=== PATIENT | male | born 1970 | race Two or more races ===

== ENCOUNTER 2018-04-11 09:19 | Observation (INO) | payer BC ==
[~2018-04-11] VITALS: Ht 172.7 cm; Wt 82.3 kg
[2018-04-11 09:45] LABS: BASO # 0.1 x10^3/uL (0.0-0.2); BASO % 1 % (0-3); EOS # 0.4 x10^3/uL (0.0-0.7); EOS % 6 % (0-3); HEMATOCRIT 45.1 % (39.0-53.0); HEMOGLOBIN 15.2 g/dL (13.0-17.5); LYMPH # 1.8 x10^3/uL (1.0-4.8); LYMPH % 26 % (24-48); MEAN CORPUSCULAR HEMOGLOBIN 28 pg (25-35); MEAN CORPUSCULAR HGB CONC 34 g/dL (31-37); MEAN CORPUSCULAR VOLUME 84 fL (79-100); MONO # 0.6 x10^3/uL (0.0-1.1); MONO % 8 % (0-9); NEUT % 59 % (31-73); PLATELET COUNT 234 x10^3/uL (140-400); RED BLOOD COUNT 5.36 x10^6/uL (4.30-5.70); RED CELL DISTRIBUTION WIDTH 13.6 % (11.5-14.5); WHITE BLOOD COUNT 6.8 x10^3/uL (4.0-11.0)
[2018-04-11 09:54] LABS: PROTHROMBIN TIME PATIENT 12.6 SEC (11.7-14.0)
[2018-04-11 10:00] LABS: CALCIUM 9.7 mg/dL (8.5-10.1); CREATININE 1.3 mg/dL (0.7-1.3); GFR 59.2; POTASSIUM 4.3 mmol/L (3.5-5.1)
[2018-04-11] MEDS ORDERED: cloNIDine HCL 0.1 MG TABLET PO ONE (10:00)
--- NOTE | 2018-04-11 10:01 | RAD ---
Indication:SYNCOPE, HTN TECHNIQUE:Portable AP chest X-ray COMPARISON:None FINDINGS: Heart is normal in size. Prominent bilateral reticular opacities are seen. No pneumothorax or pleural effusion. No focal consolidation. Visualized bony thorax is within normal limits. Mediastinum is not widened. IMPRESSION: Findings suggests atypical/viral infection in right clinical context. Otherwise, no acute pulmonary process. Electronically signed by: Diomedes Ornelas DO (04/11/2018 9:58 AM) [id number]
[2018-04-11 10:07] LABS: ALBUMIN 4.5 g/dL (3.4-5.0); MAGNESIUM 2.1 mg/dL (1.8-2.4); TOTAL BILIRUBIN 0.6 mg/dL (0.2-1.0); TOTAL PROTEIN 9.1 g/dL (6.4-8.2)
--- NOTE | 2018-04-11 10:11 | PHYS DOC ---
Past Medical History Past Medical History: High Cholesterol, Hypertension Past Surgical History: No Surgical History Alcohol Use: Rarely Drug Use: None Adult General Chief Complaint Chief Complaint: DIZZY/LIGHT HEADED HPI HPI Patient is a 47 year old male who was brought here by EMS for evaluation of dizziness. Patient has history of HTN, on Losartan and clonidine IN AM. He woke up this morning, was getting ready for work. He just got off a conference call. He was not sure if he took his blood pressure medications already. He took only losartan then afterward, he was standing in the kitchen when he suddenly felt weak and dizzy. He was nauseous, sweaty, felt like he was going to pass out, no chest pain, no shortness of air, no headache, no abdominal pain. EMS was called, found that his blood pressure was very high, brought him here for evaluation. Patient said he has been doing fine lately, no recent travel or operation. Review of Systems Review of Systems Constitutional: Denies fever or chills , POSITIVE FOR DIZZINESS, WEAKNESS, SWEATING. Eyes: Denies change in visual acuity, redness, or eye pain [] HENT: Denies nasal congestion or sore throat [] Respiratory: Denies cough or shortness of breath [] Cardiovascular: NO CHEST PAIN, NO SHORTNESS OF AIR. GI: Denies abdominal pain, nausea, vomiting, bloody stools or diarrhea [] : Denies dysuria or hematuria [] Musculoskeletal: Denies back pain or joint pain [] Integument: Denies rash or skin lesions [] Neurologic: Denies headache, focal weakness or sensory changes. Positive for dizziness. Endocrine: Denies polyuria or polydipsia [] All other systems were reviewed and found to be within normal limits, except as documented in this note. Current Medications Current Medications Current Medications Medications (Trade) Dose Ordered Sig/Kelley Start Time Stop Time Status Last Admin Dose Admin Clonidine HCl (Catapres) 0.2 mg 1X ONCE 04/11/18 10:00 04/11/18 10:01 DC 04/11/18 10:08 0.2 MG Furosemide (Lasix) 40 mg 1X ONCE 04/11/18 11:45 04/11/18 11:46 UNV Allergies Allergies Allergies Coded Allergies Type Severity Reaction Last Updated Verified No Known Drug Allergies 04/11/18 No Physical Exam Physical Exam Constitutional: Well developed, well nourished, no acute distress, non-toxic appearance. [] HENT: Normocephalic, atraumatic, bilateral external ears normal, oropharynx moist, no oral exudates, nose normal. [] Eyes: PERRLA, EOMI, conjunctiva normal, no discharge. [] Neck: Normal range of motion, no tenderness, supple, no stridor. [] Cardiovascular:Heart rate regular rhythm, no murmur [] Lungs & Thorax: Bilateral breath sounds clear to auscultation [] Abdomen: Bowel sounds normal, soft, no tenderness, no masses, no pulsatile masses. [] Skin: Warm, dry, no erythema, no rash. [] Back: No tenderness, no CVA tenderness. [] Extremities: No tenderness, no cyanosis, no clubbing, ROM intact, no edema. [] Neurologic: Alert and oriented X 3, normal motor function, normal sensory function, no focal deficits noted. [] Psychologic: Affect normal, judgement normal, mood normal. [] Current Patient Data Vital Signs Vital Signs Date Time Temp Pulse Resp B/P (MAP) Pulse Ox O2 Delivery O2 Flow Rate FiO2 04/11/18 11:05 90 18 98 04/11/18 10:08 205/126 04/11/18 09:19 98.1 Room Air 98.1 Lab Values Laboratory Tests Test 04/11/18 09:31 04/11/18 09:35 Glucose (Fingerstick) 120 mg/dL (70-99) H White Blood Count 6.8 x10^3/uL (4.0-11.0) Red Blood Count 5.36 x10^6/uL (4.30-5.70) Hemoglobin 15.2 g/dL (13.0-17.5) Hematocrit 45.1 % (39.0-53.0) Mean Corpuscular Volume 84 fL (79-100) Mean Corpuscular Hemoglobin 28 pg (25-35) Mean Corpuscular Hemoglobin Concent 34 g/dL (31-37) Red Cell Distribution Width 13.6 % (11.5-14.5) Platelet Count 234 x10^3/uL (140-400) Neutrophils (%) (Auto) 59 % (31-73) Lymphocytes (%) (Auto) 26 % (24-48) Monocytes (%) (Auto) 8 % (0-9) Eosinophils (%) (Auto) 6 % (0-3) H Basophils (%) (Auto) 1 % (0-3) Neutrophils # (Auto) 4.0 x10^3uL (1.8-7.7) Lymphocytes # (Auto) 1.8 x10^3/uL (1.0-4.8) Monocytes # (Auto) 0.6 x10^3/uL (0.0-1.1) Eosinophils # (Auto) 0.4 x10^3/uL (0.0-0.7) Basophils # (Auto) 0.1 x10^3/uL (0.0-0.2) Prothrombin Time 12.6 SEC (11.7-14.0) Prothrombin Time INR 1.0 (0.8-1.1) PTT 30 SEC (24-38) Sodium Level 142 mmol/L (136-145) Potassium Level 4.3 mmol/L (3.5-5.1) Chloride Level 103 mmol/L (98-107) Carbon Dioxide Level 29 mmol/L (21-32) Anion Gap 10 (6-14) Blood Urea Nitrogen 18 mg/dL (8-26) Creatinine 1.3 mg/dL (0.7-1.3) Estimated GFR (Cockcroft-Gault) 59.2 BUN/Creatinine Ratio 14 (6-20) Glucose Level 113 mg/dL (70-99) H Calcium Level 9.7 mg/dL (8.5-10.1) Magnesium Level 2.1 mg/dL (1.8-2.4) Total Bilirubin 0.6 mg/dL (0.2-1.0) Aspartate Amino Transferase (AST) 17 U/L (15-37) Alanine Aminotransferase (ALT) 30 U/L (16-63) Alkaline Phosphatase 81 U/L (46-116) Creatine Kinase 134 U/L (39-308) Creatine Kinase MB (Mass) 0.6 ng/mL (0.0-3.6) Creatine Kinase MB Relative Index 0.4 % (0-4) Troponin I Quantitative < 0.017 ng/mL (0.000-0.055) FV-Fwu-I-Type Natriuretic Peptide 17 pg/mL (0-124) Total Protein 9.1 g/dL (6.4-8.2) H Albumin 4.5 g/dL (3.4-5.0) Albumin/Globulin Ratio 1.0 (1.0-1.7) Laboratory Tests 04/11/18 09:35 Laboratory Tests 04/11/18 09:35 EKG EKG EKG was read by this physician at 0923, rate of 75 bpm, no STEMI, SINUS RHYTHM. Radiology/Procedures Radiology/Procedures [][place] [id number] IMAGING REPORT Signed PATIENT: CHERI WINSTON ACCOUNT: [id number] : 1970 LOCATION: ER AGE: 47 SEX: M EXAM STATUS: PRE ER ORD. PHYSICIAN: DELONTE HARVEY DO REASON: SYNCOPE PROCEDURE: CHEST AP ONLY Indication:SYNCOPE, HTN TECHNIQUE:Portable AP chest X-ray COMPARISON:None FINDINGS: Heart is normal in size. Prominent bilateral reticular opacities are seen. No pneumothorax or pleural effusion. No focal consolidation. Visualized bony thorax is within normal limits. Mediastinum is not widened. IMPRESSION: Findings suggests atypical/viral infection in right clinical context. Otherwise, no acute pulmonary process. Electronically signed by: Diomedes Ornelas DO (04/11/2018 9:58 AM) [id number] DICTATED and SIGNED BY: DIOMEDES ORNELAS DO DATE: 04/11/[address] [id number] IMAGING REPORT Signed PATIENT: CHERI WINSTON ACCOUNT: [id number] : 1970 LOCATION: ER AGE: 47 SEX: M EXAM STATUS: REG ER ORD. PHYSICIAN: DELONTE HARVEY DO REASON: dizziness, hypertensive PROCEDURE: CT HEAD WO CONTRAST PQRS Compliance statement: One or more of the following individualized dose reduction techniques were utilized for this examination: 1. Automated exposure control. 2. Adjustment of the mA and/or kV according to patient size. 3. Use of iterative reconstruction technique. Indication:DIZZINESS AND HTN NO PREV TECHNIQUE: CT head without IV contrast COMPARISON:None FINDINGS: No pathologic extra-axial or intra-axial fluid collection. The ventricles and basal cisterns are within normal limits. No acute intracranial bleed. 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 No focal loss of live-white differentiation. Orbits are within normal limits. No suspicious bony lesion. Visualized paranasal sinuses and mastoid air cells are clear. IMPRESSION: 1. No acute intracranial process. If concern for acute ischemic stroke is high, please consider MRI brain. 2. 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 Electronically signed by: Diomedes Ornelas DO (04/11/2018 10:40 AM) [id number] DICTATED and SIGNED BY: DIOMEDES ORNELAS DO DATE: 04/11/18 1038 Course & Med Decision Making Course & Med Decision Making Pertinent Labs and Imaging studies reviewed. (See chart for details) Patient was given .2 mg CLONIDINE PO, his blood pressure improved, would like to stay in the hospital for observation. Dragon Disclaimer Dragon Disclaimer This electronic medical record was generated, in whole or in part, using a voice recognition dictation system. Departure Departure Impression: Primary Impression: Hypertensive urgency Disposition: ADMITTED INPATIENT Admitting Physician: Kenneth Carlson Condition: IMPROVED Referrals: UNKNOWN PCP NAME (PCP) DELONTE HARVEY DO Apr 11, 2018 10:11
--- NOTE | 2018-04-11 10:43 | RAD ---
PQRS Compliance statement: One or more of the following individualized dose reduction techniques were utilized for this examination: 1. Automated exposure control. 2. Adjustment of the mA and/or kV according to patient size. 3. Use of iterative reconstruction technique. Indication:DIZZINESS AND HTN NO PREV TECHNIQUE: CT head without IV contrast COMPARISON:None FINDINGS: No pathologic extra-axial or intra-axial fluid collection. The ventricles and basal cisterns are within normal limits. No acute intracranial bleed. 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 No focal loss of live-white differentiation. Orbits are within normal limits. No suspicious bony lesion. Visualized paranasal sinuses and mastoid air cells are clear. IMPRESSION: 1. No acute intracranial process. If concern for acute ischemic stroke is high, please consider MRI brain. 2. 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 Electronically signed by: Diomedes Ornelas DO (04/11/2018 10:40 AM) [id number]
--- NOTE | 2018-04-11 10:58 | EKG ---
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
[2018-04-11 11:36] LABS: BILIRUBIN,URINE NEGATIVE (NEG); CLARITY,URINE CLOUDY; COLOR,URINE YELLOW; NITRITE,URINE NEGATIVE (NEG); PROTEIN,URINE 100 mg/dL (NEG-TRACE); UROBILINOGEN,URINE 0.2 mg/dL (0.2 mg/dL)
[2018-04-11 11:42] LABS: BACTERIA,URINE FEW /HPF (0-FEW)
[2018-04-11] MEDS ORDERED: FUROSEMIDE 40 MG/4 ML VIAL. IVP ONE (11:45)
--- NOTE | 2018-04-11 12:51 | SSS ---
ADMIT DATE: 04/11/2018 CHIEF COMPLAINT: Dizziness. HISTORY OF PRESENT ILLNESS: The patient is a pleasant 47-year-old male who is on 3 blood pressure meds, but back in February, he talked to his doctor in coming off one because he did not like urinating. Apparently, he was taking Lasix. Now showing up his pressures are in the 250-280 range. He came to the ER. We evaluated him. We gave him some p.r.n. IV antihypertensives. He is improving, but his pressure is still high. I plan to admit him, then we are going to get him out the same evening. If I get his pressure back down with some Lasix, I am going to put him back on his Lasix. PAST MEDICAL HISTORY: Hyperlipidemia, hypertension. ALLERGIES: None. FAMILY HISTORY: Hypertension. 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 He is . He does not drink, smoke or take drugs. MEDICATIONS: Reviewed. He is on clonidine and losartan, but he was on Lasix, but he has been off of it for the past couple of months. His was quite baffled with this. REVIEW OF SYSTEMS: GENERAL: No history of weight change, weakness or fevers. SKIN: No bruising, hair changes or rashes. EYES: No blurred, double or loss of vision. NOSE AND THROAT: No history of nosebleeds, hoarseness or sore throat. HEART: No history of palpitations, chest pain or shortness of breath on exertion. LUNGS: Denies cough, hemoptysis, wheezing or shortness of breath. GASTROINTESTINAL: Denies changes in appetite, nausea, vomiting, diarrhea or constipation. GENITOURINARY: No history of frequency, urgency, hesitancy or nocturia. NEUROLOGIC: Denies history of numbness, tingling, tremor or weakness. PSYCHIATRIC: No history of panic, anxiety or depression. ENDOCRINE: No history of heat or cold intolerance, polyuria or polydipsia. EXTREMITIES: Denies muscle weakness, joint pain, pain on walking or stiffness. PHYSICAL EXAMINATION: VITAL SIGNS: Temperature afebrile, pulse 98, respirations 18, blood pressure is down to 205/126, we have had a low earlier down into the 150s. HEART: Normal S1, S2. LUNGS: Clear. ABDOMEN: Soft. EXTREMITIES: No edema. SKIN: No rash. ENDOCRINE: No thyromegaly. LYMPHATICS: No cervical nodes. HEMATOPOIETIC: No bruising. PSYCHIATRIC: He is stable. LABORATORY DATA: Hematology is normal. Electrolytes are normal. Troponin is 0. ASSESSMENT AND PLAN: Hypertensive emergency. I think I can get this pressure down and get him home this evening. For now, we are going to give him 40 of IV Lasix and then, I give him a script for 40 p.o. Lasix to take daily. I am going to resume his home meds, recheck him on this over the next few hours, hope to get him home this evening. DISPOSITION: Home. ACTIVITY: As tolerated. DIET: Low sodium. MEDICATIONS: Please see the MRAD. TOTAL TIME: 32 minutes. CHRISTINA REILLY DO DR: CHARAN/zully JOB#: [id number] / [id number]
[2018-04-11 12:55] VITALS: BP 135/90
--- NOTE | 2018-04-11 13:30 | PDOC2 ---
PHIL CASTRO METER READER CHIEF 04/11/18 1330: CARDIAC CONSULT DATE OF CONSULT Date of Consult DATE: 04/11/18 TIME: 13:26 REASON FOR CONSULT Reason for Consult: Hypertension REFERRING PHYSICIAN Referring Physician: Dr. Carlson SOURCE Source: Chart review, Patient HISTORY OF PRESENT ILLNESS HISTORY OF PRESENT ILLNESS This is a 47 yo male who presented secondary to dizziness. Patient reports feeling well upon awakening this am. Went downstairs, began feeling significantly dizzy. Was diaphoretic. [place] like he could pass out so he laid on the floor and had family call EMS. Denies any associated chest pain, SOA, nausea /vomiting, or palpitations. When EMS arrives, BP was 250/120. Takes clonidine and losartan at home. Report he is compliant with these, although he cant specifically remember if he took his clonidine this am. Does have a history of hypothyroidism and has not taken replacement therapy in a couple of months as he ran out of medication. Symptoms resolved as blood pressure lowered in ED. PAST MEDICAL HISTORY Cardiovascular: HTN, Hyperlipidemia Pulmonary: No pertinent hx CENTRAL NERVOUS SYSTEM: Other (no pertinent hx) GI: No pertinent hx Heme/Onc: No pertinent hx Hepatobiliary: No pertinent hx Psych: No pertinent hx Musculoskeletal: Other (no pertinent hx) Rheumatologic: No pertinent hx Infectious disease: No pertinent hx ENT: No pertinent hx Renal/: No pertinent hx Endocrine: Hypothyroidism PAST SURGICAL HISTORY Past Surgical History: No pertinent history FAMILY HISTORY Family History: Hypertension SOCIAL HISTORY Smoke: No ALCOHOL: none Drugs: None Lives: with Family CURRENT MEDICATIONS CURRENT MEDICATIONS Current Medications Medications (Trade) Dose Ordered Sig/Kelley Route PRN Reason Start Time Stop Time Status Last Admin Dose Admin Clonidine HCl (Catapres) 0.2 mg 1X ONCE PO 04/11/18 10:00 04/11/18 10:01 DC 04/11/18 10:08 Furosemide (Lasix) 40 mg 1X ONCE IVP 04/11/18 11:45 04/11/18 11:46 DC 04/11/18 11:38 ALLERGIES ALLERGIES: Coded Allergies: No Known Drug Allergies (Unverified , 04/11/18) ROS Review of System 14 point ROS conducted with pertinent positives noted above in HPI. PHYSICAL EXAM General: Alert, Oriented X3, Cooperative, No acute distress HEENT: Atraumatic, Mucous membr. moist/pink Lungs: Clear to auscultation, Normal air movement Heart: Regular rate, Normal S1, Normal S2, No murmurs Abdomen: No tenderness Extremities: No edema, Normal pulses Skin: No breakdown, No significant lesion Neuro: Normal speech, Sensation intact Psych/Mental Status: Mental status NL, Mood NL MUSCULOSKELETAL: No deformity VITALS VITALS Vital Signs Date Time Temp Pulse Resp B/P (MAP) Pulse Ox O2 Delivery O2 Flow Rate FiO2 04/11/18 12:33 88 18 98 04/11/18 10:08 205/126 04/11/18 09:19 98.1 Room Air 98.1 LABS Lab: Laboratory Tests Test 04/11/18 09:31 04/11/18 09:35 04/11/18 11:25 Glucose (Fingerstick) 120 mg/dL (70-99) White Blood Count 6.8 x10^3/uL (4.0-11.0) Red Blood Count 5.36 x10^6/uL (4.30-5.70) Hemoglobin 15.2 g/dL (13.0-17.5) Hematocrit 45.1 % (39.0-53.0) Mean Corpuscular Volume 84 fL (79-100) Mean Corpuscular Hemoglobin 28 pg (25-35) Mean Corpuscular Hemoglobin Concent 34 g/dL (31-37) Red Cell Distribution Width 13.6 % (11.5-14.5) Platelet Count 234 x10^3/uL (140-400) Neutrophils (%) (Auto) 59 % (31-73) Lymphocytes (%) (Auto) 26 % (24-48) Monocytes (%) (Auto) 8 % (0-9) Eosinophils (%) (Auto) 6 % (0-3) Basophils (%) (Auto) 1 % (0-3) Neutrophils # (Auto) 4.0 x10^3uL (1.8-7.7) Lymphocytes # (Auto) 1.8 x10^3/uL (1.0-4.8) Monocytes # (Auto) 0.6 x10^3/uL (0.0-1.1) Eosinophils # (Auto) 0.4 x10^3/uL (0.0-0.7) Basophils # (Auto) 0.1 x10^3/uL (0.0-0.2) Prothrombin Time 12.6 SEC (11.7-14.0) Prothromb Time International Ratio 1.0 (0.8-1.1) Activated Partial Thromboplast Time 30 SEC (24-38) Sodium Level 142 mmol/L (136-145) Potassium Level 4.3 mmol/L (3.5-5.1) Chloride Level 103 mmol/L (98-107) Carbon Dioxide Level 29 mmol/L (21-32) Anion Gap 10 (6-14) Blood Urea Nitrogen 18 mg/dL (8-26) Creatinine 1.3 mg/dL (0.7-1.3) Estimated GFR (Cockcroft-Gault) 59.2 BUN/Creatinine Ratio 14 (6-20) Glucose Level 113 mg/dL (70-99) Calcium Level 9.7 mg/dL (8.5-10.1) Magnesium Level 2.1 mg/dL (1.8-2.4) Total Bilirubin 0.6 mg/dL (0.2-1.0) Aspartate Amino Transf (AST/SGOT) 17 U/L (15-37) Alanine Aminotransferase (ALT/SGPT) 30 U/L (16-63) Alkaline Phosphatase 81 U/L (46-116) Creatine Kinase 134 U/L (39-308) Creatine Kinase MB (Mass) 0.6 ng/mL (0.0-3.6) Creatine Kinase MB Relative Index 0.4 % (0-4) Troponin I Quantitative < 0.017 ng/mL (0.000-0.055) GZ-Ase-W-Type Natriuretic Peptide 17 pg/mL (0-124) Total Protein 9.1 g/dL (6.4-8.2) Albumin 4.5 g/dL (3.4-5.0) Albumin/Globulin Ratio 1.0 (1.0-1.7) Urine Collection Type Unknown Urine Color Yellow Urine Clarity Cloudy Urine pH 6.0 Urine Specific Anthony 1.020 Urine Protein 100 mg/dL (NEG-TRACE) Urine Glucose (UA) Negative mg/dL (NEG) Urine Ketones (Stick) Negative mg/dL (NEG) Urine Blood Small (NEG) Urine Nitrite Negative (NEG) Urine Bilirubin Negative (NEG) Urine Urobilinogen Dipstick 0.2 mg/dL (0.2 mg/dL) Urine Leukocyte Esterase Trace (NEG) Urine RBC 3-5 /HPF (0-2) Urine WBC 5-10 /HPF (0-4) Urine Bacteria Few /HPF (0-FEW) ASSESSMENT/PLAN ASSESSMENT/PLAN 1. Malignant hypertension; better controlled. 2. Dizziness; secondary to above. 3. Hyperlipidemia 4. Hypothyroidism; not compliant with therapy Recommendations Check TSH, lipids Echo to assess LV function, presence of significant valvular anomalies Resume Losartan. Clonidine not ideal Add Norvasc. Consider Coreg if BP remains elevated Hydralazine IV PRN JJ FAIRBANKS MD 04/11/18 1656: CARDIAC CONSULT ASSESSMENT/PLAN ASSESSMENT/PLAN Patient seen and examined. Agree with DUPLICATING MACHINE MECHANIC's assessment and plan. Blood pressure better controlled since admission. Agree with starting Norvasc optimizing therapy. 2-D echo showed normal LV function without any wall motion abnormalities. Check renal arterial duplex scan to rule out renovascular hypertension Thank you for your consultation PHIL CASTRO APRN Apr 11, 2018 13:30 JJ FAIRBANKS MD Apr 11, 2018 16:56
[2018-04-11] MEDS ORDERED: GEMF600T8 PO (13:37)
[2018-04-11] MEDS ORDERED: CLON0.1T PO (13:37)
[2018-04-11] MEDS ORDERED: LOSA100T14 PO (13:37)
[2018-04-11 14:07] LABS: CHOLESTEROL/HDL RATIO 5.8
--- NOTE | 2018-04-11 14:56 | CARD ---
MR#: [id number] Date of Study: 04/11/2018 Ordering Physician: PHIL CASTRO, Referring Physician: CHRISTINA REILLY Tech: Kami Dalton RDCS APPROVED REPORT EXAM: Two-dimensional and M-mode echocardiogram with Doppler and color Doppler. Other Information Quality : Good INDICATION Hypertension/HCVD 2D DIMENSIONS RVDd3.0 (2.9-3.5cm)Left Atrium(2D)2.8 (1.6-4.0cm) IVSd1.4 (0.7-1.1cm)Aortic Root(2D)2.8 (2.0-3.7cm) LVDd3.7 (3.9-5.9cm)LVOT Diameter2.0 (1.8-2.4cm) PWd1.1 (0.7-1.1cm)LVDs1.9 (2.5-4.0cm) FS (%) 30.0 %SV48.2 ml LVEF(%)60.0 (>50%) Aortic Valve AoV Peak Rivas.117.3cm/sAoV VTI17.3cm AO Peak GR.5.5mmHgLVOT Peak Rivas.96.2cm/s LVOT VTI 15.22cmAO Mean GR.3mmHg LAYA (VMAX)2.63dl5HLF (VTI)2.78cm2 AI P 1/2 Qjow112rr Mitral Valve MV E Jtfqwtsf63.4cm/sMV DECEL [id number] MV A Upbgcrjm90.5cm/sMV ISR37ri E/A Ratio0.8MVA (PHT)3.09cm2 TDI E/Lateral E'5.6E/Medial E'11.0 Pulmonary Vein S1 Imzowctv25.5cm/sD2 Csoiuiky59.6cm/s LEFT VENTRICLE The left ventricle is normal size. There is mild concentric left ventricular hypertrophy. The left ve ntricular systolic function is normal and the ejection fraction is within normal range. The Ejection Fraction is 55-60%. There is normal LV segmental wall motion. Transmitral Doppler flow pattern is Gra de I-abnormal relaxation pattern. RIGHT VENTRICLE The right ventricle is normal size. The right ventricular systolic function is normal. ATRIA The left atrium size is normal. The right atrium size is normal. The interatrial septum is intact wit h no evidence for an atrial septal defect or patent foramen ovale as noted on 2-D or Doppler imaging. AORTIC VALVE The aortic valve is normal in structure and function. Doppler and Color Flow revealed trace aortic re gurgitation. There is no significant aortic valvular stenosis. MITRAL VALVE The mitral valve is normal in structure and function. There is no evidence of mitral valve prolapse. There is no mitral valve stenosis. Doppler and Color-flow revealed trace mitral regurgitation. TRICUSPID VALVE The tricuspid valve is normal in structure and function. Doppler and Color Flow revealed no tricuspid valve regurgitation noted. There is no tricuspid valve stenosis. PULMONIC VALVE The pulmonary valve is normal in structure and function. Doppler and Color Flow revealed trace pulmon ic valvular regurgitation. There is no pulmonic valvular stenosis. GREAT VESSELS The aortic root is normal in size. The ascending aorta is normal in size. The IVC is normal in size a nd collapses >50% with inspiration. PERICARDIAL EFFUSION There is no evidence of significant pericardial effusion. Critical Notification Critical Value: No <Conclusion> The left ventricle is normal size. The left ventricular systolic function is normal and the ejection fraction is within normal range. The Ejection Fraction is 55-60%. There is mild concentric left ventricular hypertrophy. There is no significant aortic valvular stenosis. Doppler and Color Flow revealed trace aortic regurgitation. Doppler and Color-flow revealed trace mitral regurgitation. Doppler and Color Flow revealed no tricuspid valve regurgitation noted. Signed by : Seun Barnes MD Electronically Approved : 04/11/2018 14:55:34
[2018-04-11] MEDS: LOSARTAN POTASSIUM 50 MG TABLET. PO SCH (16:00)
[2018-04-11] MEDS: amLODIPine BESYLATE 10 MG TABLET PO SCH (16:25)
[2018-04-11] MEDS ORDERED: hydrALAZINE 20 MG/ML VIAL. IVP PRN (16:30)
[2018-04-11 16:50] VITALS: BP 195/114
[2018-04-11 17:33] VITALS: BP 162/108
[2018-04-11] MEDS: ACETAMINOPHEN 325 MG TABLET. PO PRN (17:33)
[2018-04-11 18:03] VITALS: BP 153/100
[2018-04-11 19:10] VITALS: BP 144/104
[2018-04-11 22:00] VITALS: BP 140/97
[2018-04-12 03:11] VITALS: BP 130/88
[2018-04-12 07:00] VITALS: BP 164/103
[2018-04-12] MEDS: ACETAMINOPHEN 325 MG TABLET. PO PRN (07:15)
[2018-04-12] MEDS: amLODIPine BESYLATE 10 MG TABLET PO SCH (07:19)
[2018-04-12] MEDS: LOSARTAN POTASSIUM 50 MG TABLET. PO SCH (07:19)
--- NOTE | 2018-04-12 07:39 | PDOC ---
PROGRESS NOTES Chief Complaint Chief Complaint Malignant hypertension; better controlled. Dizziness; secondary to above. Hyperlipidemia Hypothyroidism; not compliant with therapy History of Present Illness History of Present Illness 47 yo male who presented secondary to dizziness. Patient reports feeling well upon awakening this am. Went downstairs, began feeling significantly dizzy. Was diaphoretic. [place] like he could pass out so he laid on the floor and had family call EMS. Denies any associated chest pain, SOA, nausea/vomiting, or palpitations. When EMS arrives, BP was 250/120. Takes clonidine and losartan at home. Report he is compliant with these, although he cant specifically remember if he took his clonidine this am. Does have a history of hypothyroidism and has not taken replacement therapy in a couple of months as he ran out of medication. Symptoms resolved as blood pressure lowered in the first 24-36 hours Echo with mild concentric LVH, otherwise normal. Renal duplex - No significant renal artery stenosis bilaterally. Incidental bilateral simple renal cysts noted as described above. Still with diastolic > 100mmHg despite 4 meds. Came down with HCTZ. Thyroid needs replaced is nearly 10 on TSH. Vitals Vitals Vital Signs Date Time Temp Pulse Resp B/P (MAP) Pulse Ox O2 Delivery O2 Flow Rate FiO2 04/12/18 07:19 164/103 04/12/18 03:11 97.8 86 16 96 Room Air 97.8 Physical Exam General: Alert, Oriented X3, Cooperative, No acute distress Heart: Regular rate, Normal S1, Normal S2, No murmurs Abdomen: No tenderness Extremities: No edema, Normal pulses Skin: No breakdown, No significant lesion Labs LABS Laboratory Tests Test 04/11/18 09:31 04/11/18 09:35 04/11/18 11:25 04/11/18 17:10 Glucose (Fingerstick) 120 mg/dL (70-99) White Blood Count 6.8 x10^3/uL (4.0-11.0) Red Blood Count 5.36 x10^6/uL (4.30-5.70) Hemoglobin 15.2 g/dL (13.0-17.5) Hematocrit 45.1 % (39.0-53.0) Mean Corpuscular Volume 84 fL (79-100) Mean Corpuscular Hemoglobin 28 pg (25-35) Mean Corpuscular Hemoglobin Concent 34 g/dL (31-37) Red Cell Distribution Width 13.6 % (11.5-14.5) Platelet Count 234 x10^3/uL (140-400) Neutrophils (%) (Auto) 59 % (31-73) Lymphocytes (%) (Auto) 26 % (24-48) Monocytes (%) (Auto) 8 % (0-9) Eosinophils (%) (Auto) 6 % (0-3) Basophils (%) (Auto) 1 % (0-3) Neutrophils # (Auto) 4.0 x10^3uL (1.8-7.7) Lymphocytes # (Auto) 1.8 x10^3/uL (1.0-4.8) Monocytes # (Auto) 0.6 x10^3/uL (0.0-1.1) Eosinophils # (Auto) 0.4 x10^3/uL (0.0-0.7) Basophils # (Auto) 0.1 x10^3/uL (0.0-0.2) Prothrombin Time 12.6 SEC (11.7-14.0) Prothromb Time International Ratio 1.0 (0.8-1.1) Activated Partial Thromboplast Time 30 SEC (24-38) Sodium Level 142 mmol/L (136-145) Potassium Level 4.3 mmol/L (3.5-5.1) Chloride Level 103 mmol/L (98-107) Carbon Dioxide Level 29 mmol/L (21-32) Anion Gap 10 (6-14) Blood Urea Nitrogen 18 mg/dL (8-26) Creatinine 1.3 mg/dL (0.7-1.3) Estimated GFR (Cockcroft-Gault) 59.2 BUN/Creatinine Ratio 14 (6-20) Glucose Level 113 mg/dL (70-99) Calcium Level 9.7 mg/dL (8.5-10.1) Magnesium Level 2.1 mg/dL (1.8-2.4) Total Bilirubin 0.6 mg/dL (0.2-1.0) Aspartate Amino Transf (AST/SGOT) 17 U/L (15-37) Alanine Aminotransferase (ALT/SGPT) 30 U/L (16-63) Alkaline Phosphatase 81 U/L (46-116) Creatine Kinase 134 U/L (39-308) Creatine Kinase MB (Mass) 0.6 ng/mL (0.0-3.6) Creatine Kinase MB Relative Index 0.4 % (0-4) Troponin I Quantitative < 0.017 ng/mL (0.000-0.055) < 0.017 ng/mL (0.000-0.055) VY-Xwy-F-Type Natriuretic Peptide 17 pg/mL (0-124) Total Protein 9.1 g/dL (6.4-8.2) Albumin 4.5 g/dL (3.4-5.0) Albumin/Globulin Ratio 1.0 (1.0-1.7) Triglycerides Level 245 mg/dL (0-150) Cholesterol Level 261 mg/dL (0-200) LDL Cholesterol, Calculated 167 mg/dL (0-100) VLDL Cholesterol, Calculated 49 mg/dL (0-40) Non-HDL Cholesterol Calculated 216 mg/dL (0-129) HDL Cholesterol 45 mg/dL (40-60) Cholesterol/HDL Ratio 5.8 Thyroid Stimulating Hormone (TSH) 9.849 uIU/mL (0.358-3.74) Urine Collection Type Unknown Urine Color Yellow Urine Clarity Cloudy Urine pH 6.0 Urine Specific [place] 1.020 Urine Protein 100 mg/dL (NEG-TRACE) Urine Glucose (UA) Negative mg/dL (NEG) Urine Ketones (Stick) Negative mg/dL (NEG) Urine Blood Small (NEG) Urine Nitrite Negative (NEG) Urine Bilirubin Negative (NEG) Urine Urobilinogen Dipstick 0.2 mg/dL (0.2 mg/dL) Urine Leukocyte Esterase Trace (NEG) Urine RBC 3-5 /HPF (0-2) Urine WBC 5-10 /HPF (0-4) Urine Bacteria Few /HPF (0-FEW) Assessment and Plan Assessmemt and Plan Problems Medical Problems: (1) Hypertensive urgency Status: Acute Comment Review of Relevant I have reviewed the following items camille (where applicable) has been applied. Labs Laboratory Tests Test 04/11/18 09:31 04/11/18 09:35 04/11/18 11:25 04/11/18 17:10 Glucose (Fingerstick) 120 mg/dL (70-99) White Blood Count 6.8 x10^3/uL (4.0-11.0) Red Blood Count 5.36 x10^6/uL (4.30-5.70) Hemoglobin 15.2 g/dL (13.0-17.5) Hematocrit 45.1 % (39.0-53.0) Mean Corpuscular Volume 84 fL (79-100) Mean Corpuscular Hemoglobin 28 pg (25-35) Mean Corpuscular Hemoglobin Concent 34 g/dL (31-37) Red Cell Distribution Width 13.6 % (11.5-14.5) Platelet Count 234 x10^3/uL (140-400) Neutrophils (%) (Auto) 59 % (31-73) Lymphocytes (%) (Auto) 26 % (24-48) Monocytes (%) (Auto) 8 % (0-9) Eosinophils (%) (Auto) 6 % (0-3) Basophils (%) (Auto) 1 % (0-3) Neutrophils # (Auto) 4.0 x10^3uL (1.8-7.7) Lymphocytes # (Auto) 1.8 x10^3/uL (1.0-4.8) Monocytes # (Auto) 0.6 x10^3/uL (0.0-1.1) Eosinophils # (Auto) 0.4 x10^3/uL (0.0-0.7) Basophils # (Auto) 0.1 x10^3/uL (0.0-0.2) Prothrombin Time 12.6 SEC (11.7-14.0) Prothromb Time International Ratio 1.0 (0.8-1.1) Activated Partial Thromboplast Time 30 SEC (24-38) Sodium Level 142 mmol/L (136-145) Potassium Level 4.3 mmol/L (3.5-5.1) Chloride Level 103 mmol/L (98-107) Carbon Dioxide Level 29 mmol/L (21-32) Anion Gap 10 (6-14) Blood Urea Nitrogen 18 mg/dL (8-26) Creatinine 1.3 mg/dL (0.7-1.3) Estimated GFR (Cockcroft-Gault) 59.2 BUN/Creatinine Ratio 14 (6-20) Glucose Level 113 mg/dL (70-99) Calcium Level 9.7 mg/dL (8.5-10.1) Magnesium Level 2.1 mg/dL (1.8-2.4) Total Bilirubin 0.6 mg/dL (0.2-1.0) Aspartate Amino Transf (AST/SGOT) 17 U/L (15-37) Alanine Aminotransferase (ALT/SGPT) 30 U/L (16-63) Alkaline Phosphatase 81 U/L (46-116) Creatine Kinase 134 U/L (39-308) Creatine Kinase MB (Mass) 0.6 ng/mL (0.0-3.6) Creatine Kinase MB Relative Index 0.4 % (0-4) Troponin I Quantitative < 0.017 ng/mL (0.000-0.055) < 0.017 ng/mL (0.000-0.055) ED-Cod-R-Type Natriuretic Peptide 17 pg/mL (0-124) Total Protein 9.1 g/dL (6.4-8.2) Albumin 4.5 g/dL (3.4-5.0) Albumin/Globulin Ratio 1.0 (1.0-1.7) Triglycerides Level 245 mg/dL (0-150) Cholesterol Level 261 mg/dL (0-200) LDL Cholesterol, Calculated 167 mg/dL (0-100) VLDL Cholesterol, Calculated 49 mg/dL (0-40) Non-HDL Cholesterol Calculated 216 mg/dL (0-129) HDL Cholesterol 45 mg/dL (40-60) Cholesterol/HDL Ratio 5.8 Thyroid Stimulating Hormone (TSH) 9.849 uIU/mL (0.358-3.74) Urine Collection Type Unknown Urine Color Yellow Urine Clarity Cloudy Urine pH 6.0 Urine Specific [place] 1.020 Urine Protein 100 mg/dL (NEG-TRACE) Urine Glucose (UA) Negative mg/dL (NEG) Urine Ketones (Stick) Negative mg/dL (NEG) Urine Blood Small (NEG) Urine Nitrite Negative (NEG) Urine Bilirubin Negative (NEG) Urine Urobilinogen Dipstick 0.2 mg/dL (0.2 mg/dL) Urine Leukocyte Esterase Trace (NEG) Urine RBC 3-5 /HPF (0-2) Urine WBC 5-10 /HPF (0-4) Urine Bacteria Few /HPF (0-FEW) Laboratory Tests Test 04/11/18 09:31 04/11/18 09:35 04/11/18 11:25 04/11/18 17:10 Glucose (Fingerstick) 120 mg/dL (70-99) White Blood Count 6.8 x10^3/uL (4.0-11.0) Red Blood Count 5.36 x10^6/uL (4.30-5.70) Hemoglobin 15.2 g/dL (13.0-17.5) Hematocrit 45.1 % (39.0-53.0) Mean Corpuscular Volume 84 fL (79-100) Mean Corpuscular Hemoglobin 28 pg (25-35) Mean Corpuscular Hemoglobin Concent 34 g/dL (31-37) Red Cell Distribution Width 13.6 % (11.5-14.5) Platelet Count 234 x10^3/uL (140-400) Neutrophils (%) (Auto) 59 % (31-73) Lymphocytes (%) (Auto) 26 % (24-48) Monocytes (%) (Auto) 8 % (0-9) Eosinophils (%) (Auto) 6 % (0-3) Basophils (%) (Auto) 1 % (0-3) Neutrophils # (Auto) 4.0 x10^3uL (1.8-7.7) Lymphocytes # (Auto) 1.8 x10^3/uL (1.0-4.8) Monocytes # (Auto) 0.6 x10^3/uL (0.0-1.1) Eosinophils # (Auto) 0.4 x10^3/uL (0.0-0.7) Basophils # (Auto) 0.1 x10^3/uL (0.0-0.2) Prothrombin Time 12.6 SEC (11.7-14.0) Prothromb Time International Ratio 1.0 (0.8-1.1) Activated Partial Thromboplast Time 30 SEC (24-38) Sodium Level 142 mmol/L (136-145) Potassium Level 4.3 mmol/L (3.5-5.1) Chloride Level 103 mmol/L (98-107) Carbon Dioxide Level 29 mmol/L (21-32) Anion Gap 10 (6-14) Blood Urea Nitrogen 18 mg/dL (8-26) Creatinine 1.3 mg/dL (0.7-1.3) Estimated GFR (Cockcroft-Gault) 59.2 BUN/Creatinine Ratio 14 (6-20) Glucose Level 113 mg/dL (70-99) Calcium Level 9.7 mg/dL (8.5-10.1) Magnesium Level 2.1 mg/dL (1.8-2.4) Total Bilirubin 0.6 mg/dL (0.2-1.0) Aspartate Amino Transf (AST/SGOT) 17 U/L (15-37) Alanine Aminotransferase (ALT/SGPT) 30 U/L (16-63) Alkaline Phosphatase 81 U/L (46-116) Creatine Kinase 134 U/L (39-308) Creatine Kinase MB (Mass) 0.6 ng/mL (0.0-3.6) Creatine Kinase MB Relative Index 0.4 % (0-4) Troponin I Quantitative < 0.017 ng/mL (0.000-0.055) < 0.017 ng/mL (0.000-0.055) DW-Qwj-T-Type Natriuretic Peptide 17 pg/mL (0-124) Total Protein 9.1 g/dL (6.4-8.2) Albumin 4.5 g/dL (3.4-5.0) Albumin/Globulin Ratio 1.0 (1.0-1.7) Triglycerides Level 245 mg/dL (0-150) Cholesterol Level 261 mg/dL (0-200) LDL Cholesterol, Calculated 167 mg/dL (0-100) VLDL Cholesterol, Calculated 49 mg/dL (0-40) Non-HDL Cholesterol Calculated 216 mg/dL (0-129) HDL Cholesterol 45 mg/dL (40-60) Cholesterol/HDL Ratio 5.8 Thyroid Stimulating Hormone (TSH) 9.849 uIU/mL (0.358-3.74) Urine Collection Type Unknown Urine Color Yellow Urine Clarity Cloudy Urine pH 6.0 Urine Specific [place] 1.020 Urine Protein 100 mg/dL (NEG-TRACE) Urine Glucose (UA) Negative mg/dL (NEG) Urine Ketones (Stick) Negative mg/dL (NEG) Urine Blood Small (NEG) Urine Nitrite Negative (NEG) Urine Bilirubin Negative (NEG) Urine Urobilinogen Dipstick 0.2 mg/dL (0.2 mg/dL) Urine Leukocyte Esterase Trace (NEG) Urine RBC 3-5 /HPF (0-2) Urine WBC 5-10 /HPF (0-4) Urine Bacteria Few /HPF (0-FEW) Medications Current Medications Clonidine HCl (Catapres) 0.2 mg 1X ONCE PO Last administered on 04/11/18 10:08 ; Start 04/11/18 at 10:00; Stop 04/11/18 at 10:01; Status DC Furosemide (Lasix) 40 mg 1X ONCE IVP Last administered on 04/11/18at 11:38; Start 04/11/18 at 11:45; Stop 04/11/18 at 11:46; Status DC Amlodipine Besylate (Norvasc) 10 mg DAILY PO Last administered on 04/12/18at 07: 19; Start 04/11/18 at 16:00 Losartan Potassium (Cozaar) 100 mg DAILY PO Last administered on 04/12/18 07:19 ; Start 04/11/18 at 16:00 Hydralazine HCl (Apresoline Inj) 10 mg PRN Q4HRS PRN IVP ELEVATED BP, SEE COMMENTS Last administered on 04/11/18at 17:36; Start 04/11/18 at 16:30 Acetaminophen (Tylenol) 650 mg PRN Q6HRS PRN PO pain Last administered on at 07:15; Start 04/11/18 at 17:15 Active Scripts Active Reported Losartan Potassium 100 Mg Tablet 100 Mg PO DAILY Clonidine Hcl 0.1 Mg Tablet 0.1 Mg PO BID Gemfibrozil 600 Mg Tablet 600 Mg PO HS Vitals/I & O Vital Sign - Last 24 Hours 04/11/18 04/11/18 04/11/18 04/11/18 09:19 09:25 09:49 10:08 Temp 98.1 98.1 Pulse 76 78 76 80 Resp 18 18 18 B/P (MAP) 256/144 (181) 205/126 Pulse Ox 99 100 99 O2 Delivery Room Air 04/11/18 04/11/18 04/11/18 04/11/18 10:19 10:33 11:03 11:05 Pulse 74 84 80 90 Resp 18 18 18 18 Pulse Ox 97 98 96 98 04/11/18 04/11/18 04/11/18 04/11/18 11:33 12:03 12:33 12:55 Temp 98.3 98.3 Pulse 78 79 88 88 Resp 18 18 18 20 B/P (MAP) 135/90 (105) Pulse Ox 98 98 98 96 O2 Delivery Room Air 3/07/2504/11/18 04/11/18 04/11/18 15:00 16:00 16:25 16:50 Temp 97.2 97.2 Pulse 85 75 Resp 20 B/P (MAP) 195/114 (141) Pulse Ox 96 O2 Delivery Room Air Room Air Room Air 04/11/18 04/11/18 04/11/18 04/11/18 17:33 17:36 18:03 19:10 Temp 98.6 98.6 Pulse 94 92 Resp 16 B/P (MAP) 162/108 (126) 162/108 153/100 (117) 144/104 (117) Pulse Ox 97 O2 Delivery Room Air 04/11/18 04/11/18 04/12/18 04/12/18 20:00 22:00 03:11 07:19 Temp 98.4 97.8 98.4 97.8 Pulse 99 86 Resp 16 16 B/P (MAP) 140/97 (111) 130/88 (102) 164/103 Pulse Ox 95 96 O2 Delivery Room Air Room Air Room Air 04/12/18 07:19 B/P (MAP) 164/103 Intake and Output 04/11/18 04/11/18 04/12/18 14:59 22:59 06:59 Intake Total 0 ml 300 ml Output Total 675 ml 1050 ml Balance -675 ml -1050 ml 300 ml PEYMAN HINOJOSA MD Apr 12, 2018 07:39
[2018-04-12] MEDS ORDERED: hydroCHLOROthiazide 25 MG TABLET PO SCH (09:00)
[2018-04-12] MEDS ORDERED: cloNIDine HCL 0.1 MG TABLET PO PRN (09:00)
[2018-04-12] MEDS ORDERED: AMLO10TA8 PO (09:03)
[2018-04-12] MEDS ORDERED: AMLO-292 PO (09:03)
[2018-04-12] MEDS ORDERED: HYDR-2145 PO (09:03)
--- NOTE | 2018-04-12 09:42 | RAD ---
MR#: [id number] Date of Study: 04/11/2018 Ordering Physician: JJ FAIRBANKS, Referring Physician: CHRISTINA REILLY Tech: Serenity Vargas BS, RTR, RDMS, RVT APPROVED REPORT Patient Location: IN-PATIENT Indications Uncontrolled HTN Renal Artery Doppler Right Renal Artery Left Renal Arter y Proximal 146.0/65.0 cm/secProximal 95.0/52.0 cm/sec Mid 64.0/31.0 cm/secMid 143.0/67.0 cm/sec Distal 73.0/40.0 cm/secDistal 99.0/52.0 cm/sec Renal/Aorta Ratio 1.57Renal/Aorta Ratio 1.54 Prox. Resistive Index 0.56Prox. Resistive Index 0.45 Mid Resistive Index 0.51Mid Resistive Index 0.53 Distal Resistive Index 0.45Distal Resistive Index 0.53 Renal Measurements RightLeft Kidney Inbrmo97.9 cm cmKidney Kxaazl48.0 cm cm Right Additional FindingsLeft Additional Findings Findings Grayscale images of the bilateral kidneys reveal mild cortical disease with bilateral renal cysts on the right measuring 1.8 x 1.4 x 1.7 cm and on the left measuring 1.6 x 1.5 x 1.5 cm. The cysts appear to be simple cysts. Mild left superior kidney scarring the cortical level is noted. Spectral waveforms and color Doppler of the bilateral proximal mid and distal renal arteries does not reveal any significant velocity acceleration. Normal renal to aortic ratios noted. Resistive indices are below the normal limits but otherwise unremarkable. Critical Notification Critical Value: No <Conclusion> No significant renal artery stenosis bilaterally. Incidental bilateral simple renal cysts noted as described above. Signed by : Paul Gilbert, Electronically Approved : 04/12/2018 09:41:14
[2018-04-12 11:00] VITALS: BP 156/101
[2018-04-12 12:30] VITALS: BP 120/68
[2018-04-12] MEDS ORDERED: LABETALOL 20 MG/4 ML DISP.SYRIN. IVP PRN (12:30)
[2018-04-12] MEDS ORDERED: LEVO50TA5 PO (12:40)
[2018-04-12 14:47] VITALS: BP 156/94
--- NOTE | 2018-04-12 15:42 | NUR ---
Discharge Note: CHERI WINSTON [address] [place] [address] Discharge instructions and discharge home medications reviewed with Patient and a copy given. All questions have been answered and understanding verbalized. The following instructions and handouts were given: discharge instructions, new medication info, diet info, HTN info. Discontinued lines and drains: Peripheral IV intact. Patient discharged to Home or Self Care with Spouse via Wheelchair at 1530.
--- NOTE | 2018-04-12 15:53 | PDOC3 ---
Discharge Summary Visit Information Date of Admission: Apr 11, 2018 Date of Discharge: Apr 12, 2018 Admitting Diagnosis: HTN urgency Final Diagnosis Problems Medical Problems: (1) Hypertensive urgency Status: Acute Brief Hospital Course Allergies Allergies Coded Allergies Type Severity Reaction Last Updated Verified No Known Drug Allergies 04/11/18 No Vital Signs Vital Signs Date Time Temp Pulse Resp B/P (MAP) Pulse Ox O2 Delivery O2 Flow Rate FiO2 04/12/18 14:47 156/94 (114) 04/12/18 11:00 98.5 91 18 96 Room Air 98.5 Lab Results Laboratory Tests Test 04/11/18 09:31 04/11/18 09:35 04/11/18 11:25 04/11/18 17:10 Glucose (Fingerstick) 120 mg/dL (70-99) White Blood Count 6.8 x10^3/uL (4.0-11.0) Red Blood Count 5.36 x10^6/uL (4.30-5.70) Hemoglobin 15.2 g/dL (13.0-17.5) Hematocrit 45.1 % (39.0-53.0) Mean Corpuscular Volume 84 fL (79-100) Mean Corpuscular Hemoglobin 28 pg (25-35) Mean Corpuscular Hemoglobin Concent 34 g/dL (31-37) Red Cell Distribution Width 13.6 % (11.5-14.5) Platelet Count 234 x10^3/uL (140-400) Neutrophils (%) (Auto) 59 % (31-73) Lymphocytes (%) (Auto) 26 % (24-48) Monocytes (%) (Auto) 8 % (0-9) Eosinophils (%) (Auto) 6 % (0-3) Basophils (%) (Auto) 1 % (0-3) Neutrophils # (Auto) 4.0 x10^3uL (1.8-7.7) Lymphocytes # (Auto) 1.8 x10^3/uL (1.0-4.8) Monocytes # (Auto) 0.6 x10^3/uL (0.0-1.1) Eosinophils # (Auto) 0.4 x10^3/uL (0.0-0.7) Basophils # (Auto) 0.1 x10^3/uL (0.0-0.2) Prothrombin Time 12.6 SEC (11.7-14.0) Prothromb Time International Ratio 1.0 (0.8-1.1) Activated Partial Thromboplast Time 30 SEC (24-38) Sodium Level 142 mmol/L (136-145) Potassium Level 4.3 mmol/L (3.5-5.1) Chloride Level 103 mmol/L (98-107) Carbon Dioxide Level 29 mmol/L (21-32) Anion Gap 10 (6-14) Blood Urea Nitrogen 18 mg/dL (8-26) Creatinine 1.3 mg/dL (0.7-1.3) Estimated GFR (Cockcroft-Gault) 59.2 BUN/Creatinine Ratio 14 (6-20) Glucose Level 113 mg/dL (70-99) Calcium Level 9.7 mg/dL (8.5-10.1) Magnesium Level 2.1 mg/dL (1.8-2.4) Total Bilirubin 0.6 mg/dL (0.2-1.0) Aspartate Amino Transf (AST/SGOT) 17 U/L (15-37) Alanine Aminotransferase (ALT/SGPT) 30 U/L (16-63) Alkaline Phosphatase 81 U/L (46-116) Creatine Kinase 134 U/L (39-308) Creatine Kinase MB (Mass) 0.6 ng/mL (0.0-3.6) Creatine Kinase MB Relative Index 0.4 % (0-4) Troponin I Quantitative < 0.017 ng/mL (0.000-0.055) < 0.017 ng/mL (0.000-0.055) XW-Nmu-X-Type Natriuretic Peptide 17 pg/mL (0-124) Total Protein 9.1 g/dL (6.4-8.2) Albumin 4.5 g/dL (3.4-5.0) Albumin/Globulin Ratio 1.0 (1.0-1.7) Triglycerides Level 245 mg/dL (0-150) Cholesterol Level 261 mg/dL (0-200) LDL Cholesterol, Calculated 167 mg/dL (0-100) VLDL Cholesterol, Calculated 49 mg/dL (0-40) Non-HDL Cholesterol Calculated 216 mg/dL (0-129) HDL Cholesterol 45 mg/dL (40-60) Cholesterol/HDL Ratio 5.8 Thyroid Stimulating Hormone (TSH) 9.849 uIU/mL (0.358-3.74) Urine Collection Type Unknown Urine Color Yellow Urine Clarity Cloudy Urine pH 6.0 Urine Specific [place] 1.020 Urine Protein 100 mg/dL (NEG-TRACE) Urine Glucose (UA) Negative mg/dL (NEG) Urine Ketones (Stick) Negative mg/dL (NEG) Urine Blood Small (NEG) Urine Nitrite Negative (NEG) Urine Bilirubin Negative (NEG) Urine Urobilinogen Dipstick 0.2 mg/dL (0.2 mg/dL) Urine Leukocyte Esterase Trace (NEG) Urine RBC 3-5 /HPF (0-2) Urine WBC 5-10 /HPF (0-4) Urine Bacteria Few /HPF (0-FEW) Laboratory Tests Test 04/11/18 17:10 Troponin I Quantitative < 0.017 ng/mL (0.000-0.055) Brief Hospital Course Mr. Fregoso is a 47 yo male who presented secondary to dizziness. Patient reports feeling well upon awakening this am. Went downstairs, began feeling significantly dizzy. Was diaphoretic. [place] like he could pass out so he laid on the floor and had family call EMS. Denies any associated chest pain, SOA, nausea /vomiting, or palpitations. When EMS arrives, BP was 250/120. Takes clonidine and losartan at home. Report he is compliant with these, although he cant specifically remember if he took his clonidine this am. Does have a history of hypothyroidism and has not taken replacement therapy in a couple of months as he ran out of medication. Symptoms resolved as blood pressure lowered in the first 36 hours with addition of HCTZ, amlodipine and only prn clonidine. Seen in conjunction with cardiology after Echo showed LVH Echo with mild concentric LVH, otherwise normal. Renal duplex - No significant renal artery stenosis bilaterally. Incidental bilateral simple renal cysts noted as described above. Was still with diastolic > 100mmHg despite 4 meds until it came down with HCTZ Thyroid needs replaced is nearly 10 on TSH. He notes he actually was given levothyroxine previously. LDL notably 167, advised to cont fenofibrate, consider statin in the future if lifestyle cannot help alone. Greater than 30 minutes spent on d/c including d/w family and lifestyle modification. Discharge Information Condition at Discharge: Improved Follow Up: Weeks (2) Disposition/Orders: D/C to Home Scheduled Amlodipine Besylate (Amlodipine Besylate) 10 Mg Tablet, 10 MG PO DAILY for HTN for 30 Days, #30 To take while awaiting exforge-HCT approval Prescribed by: PEYMAN HINOJOSA MD on 04/12/18902 Amlodipine/Valsartan/Hcthiazid (Exforge Hct 10-320-25 Mg Tab) 1 Each Tablet, 1 TAB PO DAILY for HTN malignant for 90 Days, #90 Ref 3 Prescribed by: PEYMAN HINOJOSA MD on 04/12/18902 Clonidine Hcl (Clonidine Hcl) 0.1 Mg Tablet, 0.1 MG PO BID for hypertension, ( Reported) Entered as Reported by: RANDALL LOPEZ on 04/11/181336 Last Action: New Order on 04/11/181336 by RANDALL LOPEZ Gemfibrozil (Gemfibrozil) 600 Mg Tablet, 600 MG PO HS for cholesterol, (Reported ) Entered as Reported by: RANDALL LOPEZ on 04/11/181336 Last Action: New Order on 04/11/181336 by RANDALL LOPEZ Hydrochlorothiazide (Hydrochlorothiazide Tablet ) 25 Mg Tablet, 25 MG PO DAILY for HTN for 30 Days, #30 To take while awaiting exforge-HCT approval Prescribed by: PEYMAN HINOJOSA MD on 04/12/18902 Levothyroxine Sodium (Levothyroxine Sodium) 50 Mcg Tablet, 1 TAB PO DAILY for hypothyroidism for 30 Days, #30 Ref 2 Prescribed by: PEYMAN HINOJOSA MD on 04/12/18 1240 Losartan Potassium (Losartan Potassium) 100 Mg Tablet, 100 MG PO DAILY for HYPERTENSION, (Reported) Entered as Reported by: RANDALL LOPEZ on 04/11/181336 Last Action: Converted on 04/11/181531 by JONATHAN GARCIA CHRISTOPHER S MD Apr 12, 2018 15:53
== END 2018-04-12 15:37 | disposition home or self-care (01) ==
LOC: ER 09:19 → 2 SOUTH 11:27
PROVIDERS: ADMIT Internal Medicine; ATTEND Internal Medicine
DX: I16.1 Hypertensive emergency (principal); R42 Dizziness and giddiness; I10 Essential (primary) hypertension; R53.1 Weakness; R55 Syncope and collapse; Z82.49 Family history of ischemic heart disease and other diseases of the circulatory system; E03.9 Hypothyroidism, unspecified; N28.1 Cyst of kidney, acquired; E78.00 Pure hypercholesterolemia, unspecified
CPT/HCPCS: 36415; 70450; 71045; 76770; 80053; 80061; 81001; 82553; 82962; 83735; 83880; 84443; 84484; 85025; 85610; 85730; 87086; 93005; 93306; 96374; 96375; 99284; G0378; J0360; J1940; G0379

== ENCOUNTER 2021-04-09 16:33 | Inpatient (IN) | payer BC ==
[~2021-04-09] VITALS: Ht 177.8 cm; Wt 82.6 kg
[~2021-04-09 16:33] MED LIST: AMLO-187 PO; AMLO-292 PO; CLON0.1T PO; GEMF600T20 PO; HYDR-2145 PO; LEVO50TA5 PO; LOSA100T14 PO
[2021-04-09 17:29] LABS: BASO # 0.1 x10^3/uL (0.0-0.2); BASO % 1 % (0-3); EOS # 0.4 x10^3/uL (0.0-0.7); EOS % 5 % (0-3); HEMATOCRIT 50.8 % (39.0-53.0); HEMOGLOBIN 16.9 g/dL (13.0-17.5); LYMPH # 2.4 x10^3/uL (1.0-4.8); LYMPH % 29 % (24-48); MEAN CORPUSCULAR HEMOGLOBIN 28 pg (25-35); MEAN CORPUSCULAR HGB CONC 33 g/dL (31-37); MEAN CORPUSCULAR VOLUME 84 fL (79-100); MONO # 0.7 x10^3/uL (0.0-1.1); MONO % 9 % (0-9); NEUT # 4.6 x10^3/uL (1.8-7.7); NEUT % 56 % (31-73); PLATELET COUNT 231 x10^3/uL (140-400); RED BLOOD COUNT 6.04 x10^6/uL (4.30-5.70); RED CELL DISTRIBUTION WIDTH 13.5 % (11.5-14.5); WHITE BLOOD COUNT 8.2 x10^3/uL (4.0-11.0)
[2021-04-09 17:40] LABS: CALCIUM 9.7 mg/dL (8.5-10.1); CREATININE 1.4 mg/dL (0.7-1.3); GFR 53.6; POTASSIUM 3.9 mmol/L (3.5-5.1)
[2021-04-09 17:41] LABS: PROTHROMBIN TIME PATIENT 12.5 SEC (11.7-14.0)
--- NOTE | 2021-04-09 17:44 | PHYS DOC ---
Past Medical History Past Medical History: High Cholesterol, Hypertension Past Surgical History: No Surgical History Smoking Status: Never Smoker Alcohol Use: Rarely Drug Use: None Adult General Chief Complaint Chief Complaint: NEURO SYMPTOMS/DEFICITS [facility] HPI The patient is a 50-year-old male with a history of hypertension and hyperlipidemia, a never smoker. He presents for evaluation of transient, now resolved symptoms with onset about 40 minutes prior to arrival. Patient was leaving work and walking to his car when he noticed that his vision was suddenly very blurry bilaterally. This was an isolated symptom. He was able to see objects but not clearly at all and took some time to get to his car because of this. He states his walking was normal aside from being tentative because he could not see well. He sat in his car, blurry vision resolved within about 10 minutes and he began driving home. While on the way home patient's right arm began feeling somewhat numb and tingly. This was also an isolated symptom and persisted for about 30 minutes before resolving completely. At the present time patient has no symptoms at all. He denies associated fevers, nausea or vomiting, headache, focal or lateralizing weakness, neck pain/stiffness/meningismus (contrary to triage note, patient sta ginette no new right-sided neck pain today), vision changes, upper respiratory congestion/rhinorrhea, cough, sore throat, shortness of breath or chest pain of any kind, abdominal pain of any kind, flank pain, midline back pain, dysuria, hematuria, polyuria or oliguria, changes in bowel habits. He is alert, pleasantly and appropriately interactive and in no acute distress with appropriate vital signs and blood glucose. Review of Systems Review of Systems A 12 point review of systems was completed and was negative except where noted in HPI above. Allergies Allergies Allergies Coded Allergies Type Severity Reaction Last Updated Verified No Known Drug Allergies 04/11/18 No Physical Exam Physical Exam 50-year-old male appearing nontoxic and in no acute distress. Head is normocephalic and atraumatic. Neck is supple and nontender. No stiffness/rigidity/meningismus seen and patient ranges his neck fully in all dimensions without discomfort or distress. Kernig's and Brudzinski's are negative. Oropharynx is moist. Lungs are clear to auscultation at all stations. There is a normal S1 and S2 without rubs or gallops and capillary refill is appropriate, less than 2 seconds globally. Abdomen is soft, nontender and nondistended. Skin is warm and dry without cyanosis, clubbing or edema. Psychiatrically, the patient demonstrates appropriate mood and affect and is alert. Evaluation of the extremities reveals BUEs and BLEs neurovascularly intact distally with strength out of 5, sensation intact light touch in all nerve distributions, radial, DP and PT pulses 2+ and equal bilaterally, capillary refill less than 2 seconds, hands and feet warm and well-perfused. No dependent peripheral edema distally. No calf tenderness or swelling bilaterally. Homans test is negative bilaterally. Neurologically, cranial nerves II through XII are intact and there are no lateralizing deficits seen. Speech is normal. Language is normal. Coordination is normal. There is no dysmetria with finger- nose or [id number] bilaterally. Strength is 5 out of 5 in all joints of bilateral upper and lower extremities. Sensation is intact to light touch in bilateral upper and lower extremities. Patient ambulates with a narrow, steady, non-ataxic gait here in the emergency department and is alert and oriented x4. Current Patient Data Vital Signs Vital Signs Date Time Temp Pulse Resp B/P (MAP) Pulse Ox O2 Delivery O2 Flow Rate FiO2 04/09/21 18:02 150/93 (112) Room Air 04/09/21 17:31 99 26 99 04/09/21 16:33 98.1 98.1 Lab Values Laboratory Tests Test 04/09/21 16:52 04/09/21 17:10 Glucose (Fingerstick) 112 mg/dL (70-99) H White Blood Count 8.2 x10^3/uL (4.0-11.0) Red Blood Count 6.04 x10^6/uL (4.30-5.70) H Hemoglobin 16.9 g/dL (13.0-17.5) Hematocrit 50.8 % (39.0-53.0) Mean Corpuscular Volume 84 fL (79-100) Mean Corpuscular Hemoglobin 28 pg (25-35) Mean Corpuscular Hemoglobin Concent 33 g/dL (31-37) Red Cell Distribution Width 13.5 % (11.5-14.5) Platelet Count 231 x10^3/uL (140-400) Neutrophils (%) (Auto) 56 % (31-73) Lymphocytes (%) (Auto) 29 % (24-48) Monocytes (%) (Auto) 9 % (0-9) Eosinophils (%) (Auto) 5 % (0-3) H Basophils (%) (Auto) 1 % (0-3) Neutrophils # (Auto) 4.6 x10^3/uL (1.8-7.7) Lymphocytes # (Auto) 2.4 x10^3/uL (1.0-4.8) Monocytes # (Auto) 0.7 x10^3/uL (0.0-1.1) Eosinophils # (Auto) 0.4 x10^3/uL (0.0-0.7) Basophils # (Auto) 0.1 x10^3/uL (0.0-0.2) Prothrombin Time 12.5 SEC (11.7-14.0) Prothrombin Time INR 0.9 (0.8-1.1) Activated Partial Thromboplast Time 29 SEC (24-38) Sodium Level 142 mmol/L (136-145) Potassium Level 3.9 mmol/L (3.5-5.1) Chloride Level 100 mmol/L (98-107) Carbon Dioxide Level 29 mmol/L (21-32) Anion Gap 13 (6-14) Blood Urea Nitrogen 21 mg/dL (8-26) Creatinine 1.4 mg/dL (0.7-1.3) H Estimated GFR (Cockcroft-Gault) 53.6 BUN/Creatinine Ratio 15 (6-20) Glucose Level 98 mg/dL (70-99) Calcium Level 9.7 mg/dL (8.5-10.1) Total Bilirubin 0.3 mg/dL (0.2-1.0) Aspartate Amino Transferase (AST) 19 U/L (15-37) Alanine Aminotransferase (ALT) 30 U/L (16-63) Alkaline Phosphatase 61 U/L (46-116) Troponin I High Sensitivity 6 ng/L (4-75) Total Protein 9.2 g/dL (6.4-8.2) H Albumin 4.7 g/dL (3.4-5.0) Albumin/Globulin Ratio 1.0 (1.0-1.7) Laboratory Tests 04/09/21 17:10 Laboratory Tests 04/09/21 17:10 EKG EKG Sinus rhythm, rate 80, no acute ST elevation or depression, [place] 170, QRS 100, QTc 426, EP interpretation. Nonischemic tracing, intervals appropriate. Radiology/Procedures Radiology/Procedures Exam: CT head. CTA head and neck INDICATION: TIA TECHNIQUE: Sequential axial images through the head were obtained without the ad ministration of IV contrast. Sequential axial images through the head and neck were obtained following the administration of 75 mL of Isovue-370. 3-D reformatted images were reconstructed from the axial data and reviewed. Exposure: One or more of the following in the visualized dose reduction techn iques were utilized for this examination: 1. Automated exposure control 2. Adjustment of the MA and/or KV according to patient size 3. Use of iterative of reconstructive technique Comparisons: 04/11/2018 FINDINGS: Head: No focal parenchymal lesion or hemorrhage is identified. There is no midline shift or sulcal effacement. Mild patchy hypodensity in the periventricular white matter, sore prior study No acute vascular territory infarction is identified. Lopez-white distinction is preserved. The ventricular system is within normal limits without compression hydrocephalus. The basal cisterns are well maintained. The visualized portions of the paranasal sinuses and mastoid air cells are well- pneumatized. No acute fractures. CTA NECK: Visualized portions of thoracic aorta are unremarkable. Standard three-vessel arch anatomy. Right common carotid artery is patent without evidence stenosis, occlusion or aneurysm. Cervical segment of the right internal carotid artery is patent without evidence of stenosis, occlusion or aneurysm. Left common carotid artery is patent without evidence of stenosis, occlusion or aneurysm. Cervical segment of the left internal carotid artery is patent without evidence of stenosis, occlusion or aneurysm. Right vertebral artery is patent to the basilar confluence without evidence of stenosis, occlusion or aneurysm. Left vertebral artery is patent basal confluence without evidence of stenosis, occlusion or aneurysm. Visualized paraspinal soft tissues are unremarkable. CTA HEAD: Minimal calcified plaque cavernous segment of the right internal carotid artery without significant stenosis. Linear defect at the cavernous segment of the right internal carotid artery seen on series 2 image 253. Right MCA is patent. Right SHAMA is patent. Intracranial segments of the left internal carotid artery are patent without evidence of stenosis, occlusion or aneurysm. Left MCA is patent. Left SHAMA is patent. Basilar artery is patent without evidence of stenosis, occlusion or aneurysm. commercial attorney are patent bilaterally. IMPRESSION: 1. No acute intracranial abnormality. 2. Linear defect at the cavernous segment of the right internal carotid artery which is favored to be artifactual. Correlate with symptomatology to determine the need for further evaluation with MRA. 3. Patent cervical arterial vasculature without evidence of stenosis, occlusion or aneurysm. Electronically signed by: Ruddy Leyva MD (04/09/2021 6:25 PM) [facility] DICTATED and SIGNED BY: RUDDY LEYVA MD DATE: 04/09/21 [id number] 0 Course & Med Decision Making Course & Med Decision Making 50-year-old male presenting for transient bilateral blurry vision followed by transient right arm numbness and tingling. All symptoms have now resolved. NIHSS0. Ambulatory with a narrow, steady, non-ataxic gait. Will check labs, EKG and advanced imaging as noted and will then reevaluate. 1800: Work-up as above. Patient resting comfortably in no acute distress on serial reassessments. No recurrence of symptoms. Continues to have a nonfocal neurologic exam. Will bring in for further care on an observation basis, to include neurology consultation and likely MRI. Patient in agreement. Graciously accepted for admission by Dr. Seals. Murphy Disclaimer Murphy Disclaimer This electronic medical record was generated, in whole or in part, using a voice recognition dictation system. Departure Departure Impression: Primary Impression: Transient ischemic attack (TIA) Disposition: ADMITTED INPATIENT Condition: STABLE Referrals: UNKNOWN PCP NAME (PCP) FABIANO KING MD Apr 09, 2021 17:44
--- NOTE | 2021-04-09 17:51 | RAD ---
Single view chest dated 04/09/2021 5:48 PM: COMPARISON: 04/11/2018 Clinical Indication: TIA. Findings: Single upright portable exam of the chest was performed. Heart size and mediastinal contours are with in normal limits. Lungs are clear. No consolidation or pleural effusion. No pneumothorax. IMPRESSION: No acute radiographic abnormality. Electronically signed by: Connor Irizarry MD (04/09/2021 5:49 PM) [facility]
[2021-04-09 17:54] LABS: ALBUMIN 4.7 g/dL (3.4-5.0); TOTAL BILIRUBIN 0.3 mg/dL (0.2-1.0); TOTAL PROTEIN 9.2 g/dL (6.4-8.2)
--- NOTE | 2021-04-09 18:27 | RAD ---
Exam: CT head. CTA head and neck INDICATION: TIA TECHNIQUE: Sequential axial images through the head were obtained without the administration of IV co ntrast. Sequential axial images through the head and neck were obtained following the administration of 75 mL of Isovue-370. 3-D reformatted images were reconstructed from the axial data and reviewed. Exposure: One or more of the following in the visualized dose reduction techniques were utilized for this examination: 1. Automated exposure control 2. Adjustment of the MA and/or KV according to patient size 3. Use of iterative of reconstructive technique Comparisons: 04/11/2018 FINDINGS: Head: No focal parenchymal lesion or hemorrhage is identified. There is no midline shift or sulcal effaceme nt. Mild patchy hypodensity in the periventricular white matter, sore prior study No acute vascular vi tory infarction is identified. Lopez-white distinction is preserved. The ventricular system is within normal limits without compression hydrocephalus. The basal cisterns are well maintained. The visualized portions of the paranasal sinuses and mastoid air cells are well-pneumatized. No acute fractures. CTA NECK: Visualized portions of thoracic aorta are unremarkable. Standard three-vessel arch anatomy. Right common carotid artery is patent without evidence stenosis, occlusion or aneurysm. Cervical segm ent of the right internal carotid artery is patent without evidence of stenosis, occlusion or aneurys m. Left common carotid artery is patent without evidence of stenosis, occlusion or aneurysm. Cervical se gment of the left internal carotid artery is patent without evidence of stenosis, occlusion or aneury sm. Right vertebral artery is patent to the basilar confluence without evidence of stenosis, occlusion or aneurysm. Left vertebral artery is patent basal confluence without evidence of stenosis, occlusion or aneurysm. Visualized paraspinal soft tissues are unremarkable. CTA HEAD: Minimal calcified plaque cavernous segment of the right internal carotid artery without significant s tenosis. Linear defect at the cavernous segment of the right internal carotid artery seen on series 2 image 253. Right MCA is patent. Right SHAMA is patent. Intracranial segments of the left internal carotid artery are patent without evidence of stenosis, oc clusion or aneurysm. Left MCA is patent. Left SHAMA is patent. Basilar artery is patent without evidence of stenosis, occlusion or aneurysm. special warfare combatant crewman are patent bilater ally. IMPRESSION: 1. No acute intracranial abnormality. 2. Linear defect at the cavernous segment of the right internal carotid artery which is favored to b e artifactual. Correlate with symptomatology to determine the need for further evaluation with MRA. 3. Patent cervical arterial vasculature without evidence of stenosis, occlusion or aneurysm. Electronically signed by: Ruddy Ashton MD (04/09/2021 6:25 PM) [facility]
[2021-04-09] MEDS ORDERED: ACETAMINOPHEN 325 MG TABLET. PO PRN (18:45)
[2021-04-09] MEDS ORDERED: ONDANSETRON PF 4 MG/2 ML VIAL. IVP PRN (18:45)
[2021-04-09] MEDS ORDERED: MORPHINE SULFATE 2 MG/ML INJ. IVP PRN (18:45)
--- NOTE | 2021-04-09 18:52 | PDOC1 ---
History and Physical Date of Admission Date of Admission DATE: 04/09/21 TIME: 18:52 Identification/Chief Complaint Chief Complaint Right sided numbness Source Source: Patient History of Present Illness History of Present Illness Mr Puga is a 50-year-old male w/ PMHx HTN, HLD who comes to ED c/o transient monocular right sided vision loss. Vision loss was only in his right eye as he was leaving work and walking to his car when he noticed that his vision was suddenly very blurry. Upon closing his right eye he noted no visual blurring. He waited in his care 10 minutes and his right eye vision slowly improved. While on the drive home patient's right arm began feeling numb and distant twice, lasting for more than a half hour. He denies associated fevers, nausea or vomiting, headache, focal or lateralizing weakness, neck pain, cough, sore throat, shortness of breath or chest pain of any kind, abdominal pain of any kind, flank pain, midline back pain, dysuria, hematuria, polyuria or oliguria, changes in bowel habits. No history of seizure, does not smoke, drink or take illicit drugs. 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 NIHSS 0 on arrival, symptoms had resolved. EKG appears sinus rhythm, rate 80, no acute ST elevation or depression, [place] 170, QRS 100, QTc 426, EP interpretation. Nonischemic tracing, intervals appropriate. Cr 1.4, otherwise labs WNL. CT head and neck and CTA with no intracranial abnormalities, no large vessel occlusive disease. Linear defect at the cavernous segment of the right internal carotid artery which is favored to be artifactual. Admitted for further care. Past Medical History Cardiovascular: HTN, Hyperlipidemia Pulmonary: No pertinent hx CENTRAL NERVOUS SYSTEM: Other GI: No pertinent hx Heme/Onc: No pertinent hx Hepatobiliary: No pertinent hx Psych: No pertinent hx Musculoskeletal: Other Rheumatologic: No pertinent hx Infectious disease: No pertinent hx Renal/: No pertinent hx Endocrine: Hypothyroidism Past Surgical History Past Surgical History: No pertinent history Family History Family History: Diabetes, Hypertension, Stroke (maternal grandfather) Family History: Grandparents (Maternal grandfather - CVA, DM2, HTN) Social History Smoke: No ALCOHOL: none Drugs: None Current Problem List Problem List Problems Medical Problems: (1) Transient ischemic attack (TIA) Status: Acute Current Medications Current Medications Current Medications Ondansetron HCl (Zofran) 4 mg PRN Q8HRS PRN IVP NAUSEA/VOMITING; Start 04/09/21 at 18:45; Stop 04/10/21 at 18:44 Morphine Sulfate (Morphine Sulfate) 2 mg PRN Q2HR PRN IVP PAIN; Start 04/09/21 at 18:45; Stop 04/10/21 at 18:44 Acetaminophen (Tylenol) 650 mg PRN Q4HRS PRN PO FEVER > 100.3'F; Start 04/09/21 at 18:45; Stop 04/10/21 at 18:44 Aspirin (Bobby Aspirin) 325 mg 1X ONCE PO ; Start 04/09/21 at 19:00; Stop 04/09/21 at 19:01; Status UNV Active Scripts Active Levothyroxine Sodium 50 Mcg Tablet 1 Tab PO DAILY 30 Days Hydrochlorothiazide Tablet (Hydrochlorothiazide) 25 Mg Tablet 25 Mg PO DAILY 30 Days To take while awaiting exforge-HCT approval Amlodipine Besylate 10 Mg Tablet 10 Mg PO DAILY 30 Days To take while awaiting exforge-HCT approval Exforge Hct 10-320-25 Mg Tab (Amlodipine/Valsartan/Hcthiazid) 1 Each Tablet 1 Tab PO DAILY 90 Days Reported Losartan Potassium 100 Mg Tablet 100 Mg PO DAILY Clonidine Hcl 0.1 Mg Tablet 0.1 Mg PO BID Gemfibrozil 600 Mg Tablet 600 Mg PO HS Allergies Allergies: Coded Allergies: No Known Drug Allergies (Unverified , 04/11/18) Physical Exam General: Alert, Oriented X3, Cooperative, No acute distress HEENT: Atraumatic, PERRLA, EOMI, Mucous membr. moist/pink Lungs: Clear to auscultation, Normal air movement Heart: S1S2, RRR, no thrills, no rubs, no gallops, no murmurs Abdomen: Normal bowel sounds, Soft, No tenderness, No hepatosplenomegaly, No masses Rectal Exam: not examined Extremities: No clubbing, No cyanosis, No edema, Normal pulses, No tenderness/swelling Skin: No rashes, No breakdown, No significant lesion Neuro: Normal gait, Normal speech, Strength at 5/5 X4 ext, Normal tone, Sensation intact, Cranial nerves 3-12 NL, Reflexes 2+ Psych/Mental Status: Mental status NL, Mood NL Vitals Vitals Vital Signs Date Time Temp Pulse Resp B/P (MAP) Pulse Ox O2 Delivery O2 Flow Rate FiO2 04/09/21 18:02 150/93 (112) Room Air 04/09/21 17:31 99 26 99 04/09/21 16:33 98.1 98.1 Labs Labs Laboratory Tests Test 04/09/21 16:52 04/09/21 17:10 Glucose (Fingerstick) 112 mg/dL (70-99) White Blood Count 8.2 x10^3/uL (4.0-11.0) Red Blood Count 6.04 x10^6/uL (4.30-5.70) Hemoglobin 16.9 g/dL (13.0-17.5) Hematocrit 50.8 % (39.0-53.0) Mean Corpuscular Volume 84 fL (79-100) Mean Corpuscular Hemoglobin 28 pg (25-35) Mean Corpuscular Hemoglobin Concent 33 g/dL (31-37) Red Cell Distribution Width 13.5 % (11.5-14.5) Platelet Count 231 x10^3/uL (140-400) Neutrophils (%) (Auto) 56 % (31-73) Lymphocytes (%) (Auto) 29 % (24-48) Monocytes (%) (Auto) 9 % (0-9) Eosinophils (%) (Auto) 5 % (0-3) Basophils (%) (Auto) 1 % (0-3) Neutrophils # (Auto) 4.6 x10^3/uL (1.8-7.7) Lymphocytes # (Auto) 2.4 x10^3/uL (1.0-4.8) Monocytes # (Auto) 0.7 x10^3/uL (0.0-1.1) Eosinophils # (Auto) 0.4 x10^3/uL (0.0-0.7) Basophils # (Auto) 0.1 x10^3/uL (0.0-0.2) Prothrombin Time 12.5 SEC (11.7-14.0) Prothromb Time International Ratio 0.9 (0.8-1.1) Activated Partial Thromboplast Time 29 SEC (24-38) Sodium Level 142 mmol/L (136-145) Potassium Level 3.9 mmol/L (3.5-5.1) Chloride Level 100 mmol/L (98-107) Carbon Dioxide Level 29 mmol/L (21-32) Anion Gap 13 (6-14) Blood Urea Nitrogen 21 mg/dL (8-26) Creatinine 1.4 mg/dL (0.7-1.3) Estimated GFR (Cockcroft-Gault) 53.6 BUN/Creatinine Ratio 15 (6-20) Glucose Level 98 mg/dL (70-99) Calcium Level 9.7 mg/dL (8.5-10.1) Total Bilirubin 0.3 mg/dL (0.2-1.0) Aspartate Amino Transf (AST/SGOT) 19 U/L (15-37) Alanine Aminotransferase (ALT/SGPT) 30 U/L (16-63) Alkaline Phosphatase 61 U/L (46-116) Troponin I High Sensitivity 6 ng/L (4-75) Total Protein 9.2 g/dL (6.4-8.2) Albumin 4.7 g/dL (3.4-5.0) Albumin/Globulin Ratio 1.0 (1.0-1.7) Laboratory Tests Test 04/09/21 16:52 04/09/21 17:10 Glucose (Fingerstick) 112 mg/dL (70-99) White Blood Count 8.2 x10^3/uL (4.0-11.0) Red Blood Count 6.04 x10^6/uL (4.30-5.70) Hemoglobin 16.9 g/dL (13.0-17.5) Hematocrit 50.8 % (39.0-53.0) Mean Corpuscular Volume 84 fL (79-100) Mean Corpuscular Hemoglobin 28 pg (25-35) Mean Corpuscular Hemoglobin Concent 33 g/dL (31-37) Red Cell Distribution Width 13.5 % (11.5-14.5) Platelet Count 231 x10^3/uL (140-400) Neutrophils (%) (Auto) 56 % (31-73) Lymphocytes (%) (Auto) 29 % (24-48) Monocytes (%) (Auto) 9 % (0-9) Eosinophils (%) (Auto) 5 % (0-3) Basophils (%) (Auto) 1 % (0-3) Neutrophils # (Auto) 4.6 x10^3/uL (1.8-7.7) Lymphocytes # (Auto) 2.4 x10^3/uL (1.0-4.8) Monocytes # (Auto) 0.7 x10^3/uL (0.0-1.1) Eosinophils # (Auto) 0.4 x10^3/uL (0.0-0.7) Basophils # (Auto) 0.1 x10^3/uL (0.0-0.2) Prothrombin Time 12.5 SEC (11.7-14.0) Prothromb Time International Ratio 0.9 (0.8-1.1) Activated Partial Thromboplast Time 29 SEC (24-38) Sodium Level 142 mmol/L (136-145) Potassium Level 3.9 mmol/L (3.5-5.1) Chloride Level 100 mmol/L (98-107) Carbon Dioxide Level 29 mmol/L (21-32) Anion Gap 13 (6-14) Blood Urea Nitrogen 21 mg/dL (8-26) Creatinine 1.4 mg/dL (0.7-1.3) Estimated GFR (Cockcroft-Gault) 53.6 BUN/Creatinine Ratio 15 (6-20) Glucose Level 98 mg/dL (70-99) Calcium Level 9.7 mg/dL (8.5-10.1) Total Bilirubin 0.3 mg/dL (0.2-1.0) Aspartate Amino Transf (AST/SGOT) 19 U/L (15-37) Alanine Aminotransferase (ALT/SGPT) 30 U/L (16-63) Alkaline Phosphatase 61 U/L (46-116) Troponin I High Sensitivity 6 ng/L (4-75) Total Protein 9.2 g/dL (6.4-8.2) Albumin 4.7 g/dL (3.4-5.0) Albumin/Globulin Ratio 1.0 (1.0-1.7) Images Images Exam: CT head. CTA head and neck Head: No focal parenchymal lesion or hemorrhage is identified. There is no midline shift or sulcal effacement. Mild patchy hypodensity in the periventricular white matter, sore prior study No acute vascular territory infarction is identified. Lopez-white distinction is preserved. The ventricular system is within normal limits without compression hyd rocephalus. The basal cisterns are well maintained. The visualized portions of the paranasal sinuses and mastoid air cells are well- pneumatized. No acute fractures. CTA NECK: Visualized portions of thoracic aorta are unremarkable. Standard three-vessel [facility] anatomy. Right common carotid artery is patent without evidence stenosis, occlusion or aneurysm. Cervical segment of the right internal carotid artery is patent without evidence of stenosis, occlusion or aneurysm. Left common carotid artery is patent without evidence of stenosis, occlusion or aneurysm. Cervical segment of the left internal carotid artery is patent without evidence of stenosis, occlusion or aneurysm. Right vertebral artery is patent to the basilar confluence without evidence of stenosis, occlusion or aneurysm. Left vertebral artery is patent basal confluence without evidence of stenosis, occlusion or aneurysm. Visualized paraspinal soft tissues are unremarkable. CTA HEAD: Minimal calcified plaque cavernous segment of the right internal carotid artery without significant stenosis. Linear defect at the cavernous segment of the right internal carotid artery seen on series 2 image 253. Right MCA is patent. Right SHAMA is patent. Intracranial segments of the left internal carotid artery are patent without evidence of stenosis, occlusion or aneurysm. Left MCA is patent. Left SHAMA is patent. Basilar artery is patent without evidence of stenosis, occlusion or aneurysm. bowling ball mold assembler are patent bilaterally. IMPRESSION: 1. No acute intracranial abnormality. 2. Linear defect at the cavernous segment of the right internal carotid artery which is favored to be artifactual. Correlate with symptomatology to determine the need for further evaluation with MRA. 3. Patent cervical arterial vasculature without evidence of stenosis, occlusion or aneurysm. VTE Prophylaxis Ordered VTE Prophylaxis Devices: Yes VTE Pharmacological Prophylaxi: No Assessment/Plan Assessment/Plan Right sided numbness - transient. Given ASA, statin, admitted for further care, neurology consultation Right monocular vision - loss. possibly transient arterial or venous thrombosis, resolved. normal eye examination. given ASA, statin HTN - cont home meds HLD - statin, lopid ?EDILMA - unknown renal baseline FEN - regular diet PPX - ambulatory FULL CODE Dispo - inpatient for TIA symptoms Justifications for Admission Other Justification PEYMAN HINOJOSA MD Apr 09, 2021 18:52
[2021-04-09] MEDS ORDERED: ASPIRIN 325 MG TABLET PO ONE (19:00)
[2021-04-09 19:55] VITALS: BP 141/85
[2021-04-09] MEDS ORDERED: ZOLPIDEM 5 MG TABLET. PO PRN (21:45)
[2021-04-09] MEDS ORDERED: GEMFIBROZIL 600 MG TABLET. PO SCH (22:00)
[2021-04-09] MEDS ORDERED: ATORVASTATIN CALCIUM 40 MG TABLET. PO SCH (22:00)
[2021-04-09] MEDS: cloNIDine HCL 0.1 MG TABLET PO SCH ×2 (22:00→22:29)
--- NOTE | 2021-04-09 22:41 | NUR ---
After reviewing home medications w/ patient earlier, he has changed his med list. Asked if could supply a current and correct list.
[2021-04-09 23:00] VITALS: BP 113/73
[2021-04-10 03:00] VITALS: BP 99/60
[2021-04-10] MEDS ORDERED: LEVOTHYROXINE 50 MCG TABLET PO SCH ×2 (06:00→07:00)
[2021-04-10 07:00] VITALS: BP 120/80
[2021-04-10] MEDS: cloNIDine HCL 0.1 MG TABLET PO SCH (08:37)
[2021-04-10] MEDS ORDERED: hydroCHLOROthiazide 25 MG TABLET PO SCH (09:00)
[2021-04-10] MEDS ORDERED: LOSARTAN POTASSIUM 50 MG TABLET. PO SCH (09:00)
[2021-04-10 09:32] LABS: BASO # 0.1 x10^3/uL (0.0-0.2); BASO % 1 % (0-3); EOS # 0.3 x10^3/uL (0.0-0.7); EOS % 5 % (0-3); HEMATOCRIT 47.8 % (39.0-53.0); HEMOGLOBIN 15.7 g/dL (13.0-17.5); LYMPH # 1.7 x10^3/uL (1.0-4.8); LYMPH % 24 % (24-48); MEAN CORPUSCULAR HEMOGLOBIN 28 pg (25-35); MEAN CORPUSCULAR HGB CONC 33 g/dL (31-37); MEAN CORPUSCULAR VOLUME 84 fL (79-100); MONO # 0.6 x10^3/uL (0.0-1.1); MONO % 8 % (0-9); NEUT # 4.5 x10^3/uL (1.8-7.7); NEUT % 63 % (31-73); PLATELET COUNT 238 x10^3/uL (140-400); RED BLOOD COUNT 5.67 x10^6/uL (4.30-5.70); RED CELL DISTRIBUTION WIDTH 13.9 % (11.5-14.5); WHITE BLOOD COUNT 7.2 x10^3/uL (4.0-11.0)
[2021-04-10 09:51] LABS: ALBUMIN 3.9 g/dL (3.4-5.0); ALBUMIN/GLOBULIN RATIO 0.9 (1.0-1.7); CREATININE 1.2 mg/dL (0.7-1.3); GFR 64.1; POTASSIUM 3.8 mmol/L (3.5-5.1); TOTAL BILIRUBIN 0.5 mg/dL (0.2-1.0); TOTAL PROTEIN 8.2 g/dL (6.4-8.2)
[2021-04-10 09:54] LABS: CHOLESTEROL/HDL RATIO 6.4
[2021-04-10 09:59] LABS: CALCIUM 9.2 mg/dL (8.5-10.1)
[2021-04-10] MEDS ORDERED: ASPIRIN ENTERIC COATED 81 MG TABLET.DR. PO SCH (10:15)
--- NOTE | 2021-04-10 10:44 | PDOC2 ---
NEUROLOGY CONSULT Date of Service DOS: DATE: 04/10/21 TIME: 10:38 Reason for Consult Reason for Consult: Possible stroke symptoms Referring Physician Referring Physician: Dr. Seals Source Source: Caregiver (), Chart review, Patient History of Present Illness History of Present Illness The patient is a 50-year-old right-handed male who was driving yesterday and noticed vision loss. This is bilateral blurred vision, worse in the right eye, but definitely not a hemianopsia. That got little bit better and his right side then got numb for about 10 minutes. Blood pressure is 177/97 in the emergency department. It is now normal. He does take antihypertensives. He has been under little bit of stress due to some family situations as well as the fact that his late mother's birthday was yesterday. There was no headache, diplopia, dysphagia, dysarthria, weakness, cognitive change, the patient feels fully back to himself now. Past Medical History Cardiovascular: HTN, Hyperlipidemia Pulmonary: No pertinent hx CENTRAL NERVOUS SYSTEM: Other GI: No pertinent hx Heme/Onc: No pertinent hx Hepatobiliary: No pertinent hx Psych: No pertinent hx Musculoskeletal: Other Rheumatologic: No pertinent hx Infectious disease: No pertinent hx Renal/: No pertinent hx Endocrine: Hypothyroidism Past Surgical History Past Surgical History: No pertinent history Family History Family History: Diabetes, Hypertension, Stroke (maternal grandfather) Family History: Grandparents (Maternal grandfather - CVA, DM2, HTN) Past Medical History Cardiovascular: HTN, Hyperlipidemia Renal/: Benign prostatic enlarg. 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, no tobacco, rare alcohol Current Medications Current Medications Current Medications Ondansetron HCl (Zofran) 4 mg PRN Q8HRS PRN IVP NAUSEA/VOMITING; Start 04/09/21 at 18:45; Stop 04/10/21 at 18:44 Morphine Sulfate (Morphine Sulfate) 2 mg PRN Q2HR PRN IVP PAIN; Start 04/09/21 at 18:45; Stop 04/10/21 at 18:44 Acetaminophen (Tylenol) 650 mg PRN Q4HRS PRN PO FEVER > 100.3'F; Start 04/09/21 at 18:45; Stop 04/10/21 at 18:44 Aspirin (Bobby Aspirin) 325 mg 1X ONCE PO Last administered on 04/09/21 19:27; Start 04/09/21 at 19:00; Stop 04/09/21 at 19:01; Status DC Clonidine HCl (Catapres) 0.1 mg BID PO Last administered on 04/10/21 08:37; Start 04/09/21 at 22:00 Gemfibrozil (Lopid) 600 mg HS PO Last administered on 04/09/21at 22:29; Start 04/09/21 at 22:00 Levothyroxine Sodium (Synthroid) 50 mcg DAILY06 PO ; Start 04/10/21 at 06:00; Stop 04/10/21 at 06:02; Status DC Hydrochlorothiazide (Hydrodiuril) 25 mg DAILY PO Last administered on 04/10/21at 08:34; Start 04/10/21 at 09:00 Losartan Potassium (Cozaar) 100 mg DAILY PO Last administered on 04/10/21at 08:37; Start 04/10/21 at 09:00 Atorvastatin Calcium (Lipitor) 40 mg QHS PO Last administered on 04/09/21 22:29; Start 04/09/21 at 22:00 Zolpidem Tartrate (Ambien) 5 mg PRN QHS PRN PO INSOMNIA; Start 04/09/21 at 21:45 Amlodipine Besylate (Norvasc) 10 mg DAILY PO Last administered on 04/10/21at 08:34; Start 04/10/21 at 09:00 Levothyroxine Sodium (Synthroid) 50 mcg DAILY07 PO Last administered on 04/10/21at 08:37; Start 04/10/21 at 07:00 Aspirin (Ecotrin) 81 mg DAILYWBKFT PO ; Start 04/10/21 at 10:15; Status UNV Active Scripts Active Levothyroxine Sodium 50 Mcg Tablet 1 Tab PO DAILY 30 Days Exforge Hct 10-320-25 Mg Tab (Amlodipine/Valsartan/Hcthiazid) 1 Each Tablet 1 Tab PO DAILY 90 Days Reported Gemfibrozil 600 Mg Tablet 600 Mg PO HS Allergies Allergies: Coded Allergies: No Known Drug Allergies (Unverified , 04/11/18) ROS Review of System Negative for fever, chills, weight loss, shortness of breath, chest pain, indigestion, hematochezia, melena, and dysuria. Full 14-point review of systems is negative. Physical Exam Physical Examination General: Well-developed, well-nourished, male, in no acute distress HEENT: Normocephalic andatraumatic. Temporal arteriespulsatile and nontender.Fundoscopic exam unremarkable Neck: Supple without bruit, no meningismus Musculoskeletal: Stability:see neurologic. Gait exam:see neurologic. Tone:see neurologic.Strength:see neurologic. Neurological: Mental Status:intact, orientation, memory, attention span/concentration, language, fund of knowledge normal. Cranial Nerves:Pupils equal and reactive to light, extraocular movements areintact, visual murray are full to confrontation. Facial sensation is normal. There is no facial asymmetry. Vestibulo-ocular reflex is intact. Palate elevates and tongue protrudes in midline. All other cranial related problems are negative except as mentioned before.Reflexes:2+ and symmetric with flexor plantar responses. Motor:5/5 strength with normal tone and bulk. Coordination:Finger-nose finger and [id number] testing are normal. Rapid alternating movements and fine finger movements are intact. Gait:Normal, including tandem. Sensory:Normal pinprick, vibration, light touch, proprioception. Vitals VITALS Vital Signs Date Time Temp Pulse Resp B/P (MAP) Pulse Ox O2 Delivery O2 Flow Rate FiO2 04/10/21 08:37 73 120/80 04/10/21 07:00 97.8 20 97 Room Air 97.8 Labs Labs Laboratory Tests Test 04/09/21 16:52 04/09/21 17:10 04/10/21 08:45 Glucose (Fingerstick) 112 mg/dL (70-99) White Blood Count 8.2 x10^3/uL (4.0-11.0) 7.2 x10^3/uL (4.0-11.0) Red Blood Count 6.04 x10^6/uL (4.30-5.70) 5.67 x10^6/uL (4.30-5.70) Hemoglobin 16.9 g/dL (13.0-17.5) 15.7 g/dL (13.0-17.5) Hematocrit 50.8 % (39.0-53.0) 47.8 % (39.0-53.0) Mean Corpuscular Volume 84 fL (79-100) 84 fL (79-100) Mean Corpuscular Hemoglobin 28 pg (25-35) 28 pg (25-35) Mean Corpuscular Hemoglobin Concent 33 g/dL (31-37) 33 g/dL (31-37) Red Cell Distribution Width 13.5 % (11.5-14.5) 13.9 % (11.5-14.5) Platelet Count 231 x10^3/uL (140-400) 238 x10^3/uL (140-400) Neutrophils (%) (Auto) 56 % (31-73) 63 % (31-73) Lymphocytes (%) (Auto) 29 % (24-48) 24 % (24-48) Monocytes (%) (Auto) 9 % (0-9) 8 % (0-9) Eosinophils (%) (Auto) 5 % (0-3) 5 % (0-3) Basophils (%) (Auto) 1 % (0-3) 1 % (0-3) Neutrophils # (Auto) 4.6 x10^3/uL (1.8-7.7) 4.5 x10^3/uL (1.8-7.7) Lymphocytes # (Auto) 2.4 x10^3/uL (1.0-4.8) 1.7 x10^3/uL (1.0-4.8) Monocytes # (Auto) 0.7 x10^3/uL (0.0-1.1) 0.6 x10^3/uL (0.0-1.1) Eosinophils # (Auto) 0.4 x10^3/uL (0.0-0.7) 0.3 x10^3/uL (0.0-0.7) Basophils # (Auto) 0.1 x10^3/uL (0.0-0.2) 0.1 x10^3/uL (0.0-0.2) Prothrombin Time 12.5 SEC (11.7-14.0) Prothromb Time International Ratio 0.9 (0.8-1.1) Activated Partial Thromboplast Time 29 SEC (24-38) Sodium Level 142 mmol/L (136-145) 142 mmol/L (136-145) Potassium Level 3.9 mmol/L (3.5-5.1) 3.8 mmol/L (3.5-5.1) Chloride Level 100 mmol/L (98-107) 104 mmol/L (98-107) Carbon Dioxide Level 29 mmol/L (21-32) 27 mmol/L (21-32) Anion Gap 13 (6-14) 11 (6-14) Blood Urea Nitrogen 21 mg/dL (8-26) 15 mg/dL (8-26) Creatinine 1.4 mg/dL (0.7-1.3) 1.2 mg/dL (0.7-1.3) Estimated GFR (Cockcroft-Gault) 53.6 64.1 BUN/Creatinine Ratio 15 (6-20) 13 (6-20) Glucose Level 98 mg/dL (70-99) 99 mg/dL (70-99) Calcium Level 9.7 mg/dL (8.5-10.1) 9.2 mg/dL (8.5-10.1) Total Bilirubin 0.3 mg/dL (0.2-1.0) 0.5 mg/dL (0.2-1.0) Aspartate Amino Transf (AST/SGOT) 19 U/L (15-37) 18 U/L (15-37) Alanine Aminotransferase (ALT/SGPT) 30 U/L (16-63) 26 U/L (16-63) Alkaline Phosphatase 61 U/L (46-116) 53 U/L (46-116) Troponin I High Sensitivity 6 ng/L (4-75) Total Protein 9.2 g/dL (6.4-8.2) 8.2 g/dL (6.4-8.2) Albumin 4.7 g/dL (3.4-5.0) 3.9 g/dL (3.4-5.0) Albumin/Globulin Ratio 1.0 (1.0-1.7) 0.9 (1.0-1.7) Triglycerides Level 213 mg/dL (0-150) Cholesterol Level 235 mg/dL (0-200) LDL Cholesterol, Calculated 155 mg/dL (0-100) VLDL Cholesterol, Calculated 43 mg/dL (0-40) Non-HDL Cholesterol Calculated 198 mg/dL (0-129) HDL Cholesterol 37 mg/dL (40-60) Cholesterol/HDL Ratio 6.4 Thyroid Stimulating Hormone (TSH) 2.303 uIU/mL (0.358-3.74) Laboratory Tests Test 04/09/21 16:52 04/09/21 17:10 04/10/21 08:45 Glucose (Fingerstick) 112 mg/dL (70-99) White Blood Count 8.2 x10^3/uL (4.0-11.0) 7.2 x10^3/uL (4.0-11.0) Red Blood Count 6.04 x10^6/uL (4.30-5.70) 5.67 x10^6/uL (4.30-5.70) Hemoglobin 16.9 g/dL (13.0-17.5) 15.7 g/dL (13.0-17.5) Hematocrit 50.8 % (39.0-53.0) 47.8 % (39.0-53.0) Mean Corpuscular Volume 84 fL (79-100) 84 fL (79-100) Mean Corpuscular Hemoglobin 28 pg (25-35) 28 pg (25-35) Mean Corpuscular Hemoglobin Concent 33 g/dL (31-37) 33 g/dL (31-37) Red Cell Distribution Width 13.5 % (11.5-14.5) 13.9 % (11.5-14.5) Platelet Count 231 x10^3/uL (140-400) 238 x10^3/uL (140-400) Neutrophils (%) (Auto) 56 % (31-73) 63 % (31-73) Lymphocytes (%) (Auto) 29 % (24-48) 24 % (24-48) Monocytes (%) (Auto) 9 % (0-9) 8 % (0-9) Eosinophils (%) (Auto) 5 % (0-3) 5 % (0-3) Basophils (%) (Auto) 1 % (0-3) 1 % (0-3) Neutrophils # (Auto) 4.6 x10^3/uL (1.8-7.7) 4.5 x10^3/uL (1.8-7.7) Lymphocytes # (Auto) 2.4 x10^3/uL (1.0-4.8) 1.7 x10^3/uL (1.0-4.8) Monocytes # (Auto) 0.7 x10^3/uL (0.0-1.1) 0.6 x10^3/uL (0.0-1.1) Eosinophils # (Auto) 0.4 x10^3/uL (0.0-0.7) 0.3 x10^3/uL (0.0-0.7) Basophils # (Auto) 0.1 x10^3/uL (0.0-0.2) 0.1 x10^3/uL (0.0-0.2) Prothrombin Time 12.5 SEC (11.7-14.0) Prothromb Time International Ratio 0.9 (0.8-1.1) Activated Partial Thromboplast Time 29 SEC (24-38) Sodium Level 142 mmol/L (136-145) 142 mmol/L (136-145) Potassium Level 3.9 mmol/L (3.5-5.1) 3.8 mmol/L (3.5-5.1) Chloride Level 100 mmol/L (98-107) 104 mmol/L (98-107) Carbon Dioxide Level 29 mmol/L (21-32) 27 mmol/L (21-32) Anion Gap 13 (6-14) 11 (6-14) Blood Urea Nitrogen 21 mg/dL (8-26) 15 mg/dL (8-26) Creatinine 1.4 mg/dL (0.7-1.3) 1.2 mg/dL (0.7-1.3) Estimated GFR (Cockcroft-Gault) 53.6 64.1 BUN/Creatinine Ratio 15 (6-20) 13 (6-20) Glucose Level 98 mg/dL (70-99) 99 mg/dL (70-99) Calcium Level 9.7 mg/dL (8.5-10.1) 9.2 mg/dL (8.5-10.1) Total Bilirubin 0.3 mg/dL (0.2-1.0) 0.5 mg/dL (0.2-1.0) Aspartate Amino Transf (AST/SGOT) 19 U/L (15-37) 18 U/L (15-37) Alanine Aminotransferase (ALT/SGPT) 30 U/L (16-63) 26 U/L (16-63) Alkaline Phosphatase 61 U/L (46-116) 53 U/L (46-116) Troponin I High Sensitivity 6 ng/L (4-75) Total Protein 9.2 g/dL (6.4-8.2) 8.2 g/dL (6.4-8.2) Albumin 4.7 g/dL (3.4-5.0) 3.9 g/dL (3.4-5.0) Albumin/Globulin Ratio 1.0 (1.0-1.7) 0.9 (1.0-1.7) Triglycerides Level 213 mg/dL (0-150) Cholesterol Level 235 mg/dL (0-200) LDL Cholesterol, Calculated 155 mg/dL (0-100) VLDL Cholesterol, Calculated 43 mg/dL (0-40) Non-HDL Cholesterol Calculated 198 mg/dL (0-129) HDL Cholesterol 37 mg/dL (40-60) Cholesterol/HDL Ratio 6.4 Thyroid Stimulating Hormone (TSH) 2.303 uIU/mL (0.358-3.74) Images Images CT head. CTA head and neck INDICATION: TIA TECHNIQUE: Sequential axial images through the head were obtained without the administration of IV contrast. Sequential axial images through the head and neck were obtained following the administration of 75 mL of Isovue-370. 3-D reformatted images were reconstructed from the axial data and reviewed. Exposure: One or more of the following in the visualized dose reduction techniques were utilized for this examination: 1. Automated exposure control 2. Adjustment of the MA and/or KV according to patient size 3. Use of iterative of reconstructive technique Comparisons: 04/11/2018 FINDINGS: Head: No focal parenchymal lesion or hemorrhage is identified. There is no midline shift or sulcal effacement. Mild patchy hypodensity in the periventricular white matter, sore prior study No acute vascular territory infarction is identified. Lopez-white distinction is preserved. The ventricular system is within normal limits without compression hydrocephalus. The basal cisterns are well maintained. The visualized portions of the paranasal sinuses and mastoid air cells are well- pneumatized. No acute fractures. CTA NECK: Visualized portions of thoracic aorta are unremarkable. Standard three-vessel arch anatomy. Right common carotid artery is patent without evidence stenosis, occlusion or aneurysm. Cervical segment of the right internal carotid artery is patent without evidence of stenosis, occlusion or aneurysm. Left common carotid artery is patent without evidence of stenosis, occlusion or aneurysm. Cervical segment of the left internal carotid artery is patent without evidence of stenosis, occlusion or aneurysm. Right vertebral artery is patent to the basilar confluence without evidence of stenosis, occlusion or aneurysm. Left vertebral artery is patent basal confluence without evidence of stenosis, o cclusion or aneurysm. Visualized paraspinal soft tissues are unremarkable. CTA HEAD: Minimal calcified plaque cavernous segment of the right internal carotid artery without significant stenosis. Linear defect at the cavernous segment of the right internal carotid artery seen on series 2 image 253. Right MCA is patent. Right SHAMA is patent. Intracranial segments of the left internal carotid artery are patent without evidence of stenosis, occlusion or aneurysm. Left MCA is patent. Left SHAMA is patent. Basilar artery is patent without evidence of stenosis, occlusion or aneurysm. stock pitcher are patent bilaterally. IMPRESSION: 1. No acute intracranial abnormality. 2. Linear defect at the cavernous segment of the right internal carotid artery which is favored to be artifactual. Correlate with symptomatology to determine the need for further evaluation with MRA. 3. Patent cervical arterial vasculature without evidence of stenosis, occlusion or aneurysm. Assessment/Plan Assessment/Plan Impression: Superficially, symptoms of transischemic attack, but he had bilateral blurred vision, albeit worse in the right eye, but definitely not hemianopsia. It is virtually impossible for a brain issue to cause bilateral blurred vision unless we are invoking bilateral occipital lobes. Then he developed numbness i on the right, which would certainly be in a separate vascular territory. Thus, I do not believe he had a transischemic attack, hypertensive encephalopathy would certainly explain the symptoms. He feels back to himself now and his neurological exam is normal Hypertension, hyperlipidemia Recommendations: Okay for discharge I asked the nurse to check NIH score for completeness He can follow with his primary physician regarding the hyperlipidemia and hypertension Aspirin 81 mg daily Optionally, his primary physician could arrange for MRI of the brain and echocardiogram, I do not think these are necessary unless he has recurrent symptoms. I fully discussed with the patient and his . Thank you for letting me help with the patient's care. HELLEN BREWSTER MD Apr 10, 2021 10:43
[2021-04-10 11:00] VITALS: BP 122/83
[2021-04-10] MEDS ORDERED: ATOR40TA59 PO (11:54)
--- NOTE | 2021-04-10 15:06 | DS ---
DATE OF DISCHARGE: 04/10/2021 ADMITTING DIAGNOSES: Possible transient ischemic attack and elevated blood pressure, hypertensive urgency. DISCHARGE DIAGNOSES: Resolving hypertensive urgency, resolving transient ischemic attack symptoms, hypothyroidism and hyperlipidemia. CONSULTS: Neurology. PROCEDURES: None. 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 Basically, he presented with TIA symptoms. His pressure was quite high into the 180s. He was admitted. The above consults were obtained. We got his pressures down. Today, he is doing well and wants to go home. His symptoms have resolved. His pressure was down to 122/83. We plan to discharge. DISPOSITION: Home. ACTIVITY: As tolerated. DIET: Low sodium. DISCHARGE MEDICATIONS: Please see the MRAD. Atorvastatin 40 a day, aspirin 81 a day, Exforge 10/320/25 one a day, gemfibrozil 600 at bedtime, and Synthroid 50 a day. TOTAL TIME: 22 minutes. CHARAN/NANCI/CHANTAL DR: CHARAN/zully TID: [id number]
--- NOTE | 2021-04-11 00:38 | EKG ---
[facility] [address] [place] [address] Test Date: 2021-04-09 Test Time: 16:52:37 Pat Name: CHERI WINSTON Department: Room: 528 1 Gender: M Rn Patient Care: : 1970 Requested By: FABIANO KING Order Number: [id number] Reading MD: Paul Gilbert MD Measurements Intervals [place] Rate: 81 P: 56 VT: 170 QRS: 50 QRSD: 98 T: 32 QT: 364 QTc: 428 Interpretive Statements SR NON-SPECIFIC ST/T CHANGES Electronically Signed On 04-12-2021 10:20:10 ACCOUNT MANAGEMENT SPECIALIST by Paul Gilbert MD
--- NOTE | 2021-04-11 01:01 | EKG ---
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
== END 2021-04-10 12:40 | disposition home or self-care (01) | DRG 69 ==
LOC: ER 16:33 → 5 NORTH 18:30
PROVIDERS: ADMIT Internal Medicine; ATTEND Internal Medicine
DX: G45.9 Transient cerebral ischemic attack, unspecified (principal); I16.0 Hypertensive urgency; E03.9 Hypothyroidism, unspecified; E78.00 Pure hypercholesterolemia, unspecified; E78.5 Hyperlipidemia, unspecified; H54.61 Unqualified visual loss, right eye, normal vision left eye; I10 Essential (primary) hypertension; Z82.3 Family history of stroke; Z82.49 Family history of ischemic heart disease and other diseases of the circulatory system; Z83.3 Family history of diabetes mellitus
CPT/HCPCS: 36415; 70450; 70496; 70498; 71045; 80053; 80061; 82962; 83036; 84443; 84484; 85025; 85610; 85730; 93005; 99285-25; G0378